=== PATIENT | female | born 1940 | race Caucasian/White ===

== ENCOUNTER → 2018-06-20 08:34 | Outpatient (CLI) | payer MEDICARE, SELFPAY ==
[2018-06-20 09:51] LABS: Alanine Aminotransferase 25 IU/L (9-52); Albumin 4.4 g/dL (3.5-5.0); Albumin Globulin Ratio 1.6 (1.0-2.8); Alkaline Phosphatase 44 U/L (38-126); Aspartate Aminotransferase 24 IU/L (14-36); Bilirubin Total 0.6 mg/dL (0.2-1.3); Blood Urea Nitrogen 14 mg/dL (7-17); Calcium 9.3 mg/dL (8.4-10.2); Carbon Dioxide 27 mmol/L (22-32); Chloride 105 mmol/L (98-107); Estimated Glomerular Filt Rate > 60.0 mL/min (>60); Globulin 2.7 g/dL (1.7-4.1); Glucose 99 mg/dL (80-110); HEMOLYSIS < 15 (0-50); Magnesium 2.4 mg/dL (1.6-2.3); Potassium 4.4 mmol/L (3.4-5.1); Sodium 144 mmol/L (137-145); Total Protein 7.1 g/dL (6.3-8.2)
[2018-06-23 11:49] LABS: Lipoprofile NMR SEE SEPERATE REPORT
== END ==
PROVIDERS: Family Provider Family Medicine; PCP Family Medicine; Visit Provider Specialist
DX: E78.5 Hyperlipidemia, unspecified (principal); I25.10 Atherosclerotic heart disease of native coronary artery without angina pectoris; I49.1 Atrial premature depolarization
CPT/HCPCS: 36415; 80053; 83704; 83735

== ENCOUNTER → 2018-09-15 14:46 | Outpatient (CLI) | payer MEDICARE, SELFPAY | PROVIDERS: PCP Family Medicine; Visit Provider Family Medicine | DX: M85.851 Other specified disorders of bone density and structure, right thigh (principal); Z78.0 Asymptomatic menopausal state; Z85.3 Personal history of malignant neoplasm of breast | CPT/HCPCS: 77080 ==

== ENCOUNTER → 2018-10-10 09:42 | Outpatient (CLI) | payer MEDICARE, SELFPAY ==
--- NOTE | 2018-10-10 | DI.MG.S_ITS ---
BILATERAL DIGITAL SCREENING MAMMOGRAM 3D/2D WITH CAD POST LUMPECTOMY: 10/10/2018 CLINICAL: Routine screening. Personal history of right breast cancer. Comparison is made to exams dated: 09/13/2017 mammogram, 08/31/2016 mammogram, and 05/29/2015 mammogram - [facility]. The tissue of both breasts is heterogeneously dense. This may lower the sensitivity of mammography. Current study was also evaluated with a Computer Aided Detection (CAD) system. There are benign post operative findings in the right breast. There also are benign vascular calcifications in both breasts. No significant masses, calcifications, or other findings are seen in either breast. There has been no significant interval change. IMPRESSION: There is no mammographic evidence of malignancy. A 1 year screening mammogram is recommended. This exam was interpreted at Station ID: [id number]. NOTE: For mammograms, a report in lay terms will be sent to the patient. Approximately 15% of breast malignancies will not be visualized mammographically. In the management of a palpable breast mass, a negative mammogram must not discourage biopsy of a clinically suspicious lesion. Electronically Signed By: Chaitanya gordon/brendon:10/10/2018 11:33:57 copy to: CONNOR MAJOR letter sent: Normal Exam ACR BI-RADS Category 2: Benign Finding(s) [id number]
== END ==
PROVIDERS: PCP Family Medicine; Visit Provider Family Medicine
DX: Z12.31 Encounter for screening mammogram for malignant neoplasm of breast (principal); Z85.3 Personal history of malignant neoplasm of breast
CPT/HCPCS: 77063; 77067

== ENCOUNTER → 2018-10-13 09:12 | Outpatient (CLI) | payer MEDICARE, SELFPAY ==
[2018-10-17 14:37] LABS: Lipoprofile NMR SEE SEPERATE REPORT
== END ==
PROVIDERS: Family Provider Family Medicine; PCP Family Medicine; Visit Provider Specialist
DX: E78.5 Hyperlipidemia, unspecified (principal)
CPT/HCPCS: 36415; 83704

== ENCOUNTER → 2018-12-04 12:23 | Outpatient (CLI) | payer MEDICARE, SELFPAY ==
[2018-12-04 14:43] LABS: Appearance Urine UA CLOUDY; Bilirubin Urine UA NEGATIVE (NEGATIVE); Color Urine UA YELLOW; Glucose Urine UA NEGATIVE (Negative); Ketones Urine UA NEGATIVE (NEGATIVE); Leukocyte Esterase Urine UA 1+ (NEGATIVE); Nitrite Urine UA NEGATIVE (Negative); Occult Blood Urine UA 3+ (Negative); Protein Urine UA 2+ (Negative); Urobilinogen Urine UA 0.2 E.U./dL (0.2); pH Urine UA 5.5 (4.5-8.0)
[2018-12-04 14:47] LABS: Bacteria Urine Few (2-10); RBC Urine 5-10/HPF (0-5/HPF); Squamous Epithelial Cell Urine 1-5 /HPF; WBC Urine 5-10/HPF (0-5/HPF)
[2018-12-04 14:48] LABS: Culture Indicated Urine Specimen Cultured; Mucus Urine 1+ (Negative)
== END ==
PROVIDERS: Family Provider Family Medicine; PCP Family Medicine; Visit Provider Nurse Practitioner
DX: N39.0 Urinary tract infection, site not specified (principal)
CPT/HCPCS: 81001; 87077; 87086; 87186

== ENCOUNTER → 2019-02-23 15:50 | Outpatient (CLI) | payer MEDICARE, SELFPAY ==
--- NOTE | 2019-02-23 15:52 | DI.RAD.S_ITS ---
PROCEDURE: XR CHEST 2V INDICATIONS: cough, fever TECHNIQUE: 2 views of the chest were acquired. COMPARISON: [facility], , CHEST 2 VIEW, 09/01/2015, 14:48. FINDINGS: Surgical changes and devices: None. Lungs and pleura: Lungs are clear. No pleural effusions or pneumothorax. Mediastinum: Mediastinal contours are normal. Heart size is normal. Bones and chest wall: No suspicious bony abnormalities. Soft tissues appear unremarkable. IMPRESSION: Normal for age, source of current cough and fever symptoms is not seen. Dictated by: Myron Araiza M.D. on 02/23/2019 at 16:18 Approved by: Myron Araiza M.D. on 02/23/2019 at 16:18
== END ==
PROVIDERS: Family Provider Family Medicine; PCP Family Medicine; Visit Provider Nurse Practitioner
DX: R05 Cough (principal); R50.9 Fever, unspecified
CPT/HCPCS: 71046

== ENCOUNTER → 2019-03-02 12:09 | Outpatient (CLI) | payer MEDICARE, SELFPAY ==
--- NOTE | 2019-03-02 12:13 | DI.RAD.S_ITS ---
PROCEDURE: XR CHEST 2V INDICATIONS: Worsening cough TECHNIQUE: 2 views of the chest were acquired. COMPARISON: [facility], CR, XR CHEST 2V, 02/23/2019, 15:59. FINDINGS: Surgical changes and devices: Surgical clips in the right axilla as before. Lungs and pleura: Lungs are clear. No pleural effusions or pneumothorax. Mediastinum: Mediastinal contours are normal. Heart size is normal. Bones and chest wall: No suspicious bony abnormalities. Soft tissues appear unremarkable. IMPRESSION: Stable radiographic evaluation of the chest without acute cardiopulmonary abnormalities. No focal consolidation. No radiographic abnormalities identified to explain patient's worsening cough. Dictated by: Stas Velazco M.D. on 03/02/2019 at 12:59 Approved by: Stas Velazco M.D. on 03/02/2019 at 13:00
== END ==
PROVIDERS: Family Provider Family Medicine; PCP Family Medicine; Visit Provider Registered Nurse
DX: R05 Cough (principal)
CPT/HCPCS: 71046

== ENCOUNTER → 2019-05-02 10:36 | Outpatient (CLI) | payer MEDICARE, SELFPAY ==
[2019-05-02 11:43] LABS: Add Manual Diff / Slide Review NO; Basophils Absolute Auto 0 /uL (0-100); Basophils Percent Auto 0.3 % (0-2); Eosinophils Absolute Auto 200 /uL (0-450); Eosinophils Percent Auto 2.2 % (2-4); Hemoglobin 13.8 g/dL (12.0-16.0); Lymphocytes Absolute Auto 2700 /uL (1100-4500); Mean Corpuscular HGB Conc 33.8 % (30-36); Mean Corpuscular Hemoglobin 31.6 PG (26-34); Mean Corpuscular Volume 93.5 fL (80-100); Monocytes Absolute Auto 900 /uL (0-900); Monocytes Percent Auto 9.6 % (3-14); Neutrophils Absolute Auto 5700 /uL (1500-7000); Neutrophils Percent Auto 59.9 % (50-75); Platelet Count 247 X10^3/uL (150-400); Red Blood Cell Count 4.38 X10^6/uL (4.0-5.2); Red Cell Distribution Width 13.7 % (11.6-14.8); White Blood Cell Count 9.5 X10^3/uL (4.5-11.0)
[2019-05-02 12:04] LABS: Carbon Dioxide 26 mmol/L (22-32); Chloride 102 mmol/L (98-107); HEMOLYSIS < 15 (0-50); Sodium 140 mmol/L (137-145)
== END ==
PROVIDERS: Family Provider Family Medicine; PCP Family Medicine; Visit Provider Orthopaedic Surgery
DX: M25.551 Pain in right hip (principal); Z01.818 Encounter for other preprocedural examination; Z01.812 Encounter for preprocedural laboratory examination
CPT/HCPCS: 36415; 80051; 85025

== ENCOUNTER → 2019-05-09 13:46 | Outpatient (CLI) | payer MEDICARE, SELFPAY | PROVIDERS: Family Provider Family Medicine; PCP Family Medicine; Visit Provider Orthopaedic Surgery | DX: Z01.818 Encounter for other preprocedural examination (principal) | CPT/HCPCS: 93005; 93010 ==

== ENCOUNTER 2019-05-14 08:42 | Inpatient (IN) | payer MEDICARE, SELFPAY ==
[2019-05-08 11:41] VITALS: BMI 20.9
[2019-05-14] VITALS (14 sets, daily range): BP systolic 94–157; BP diastolic 39–84; PULSE 64–109; RESP 15–18; TEMP 36.1–37; O2SAT 92–99; BMI 20.9
--- NOTE | 2019-05-14 | DI.RAD.S_ITS ---
PROCEDURE: XR PELVIS 1-2V INDICATIONS: ANTERIOR HIP ARTHROPLASTY FINDINGS: 2 limited intraoperative fluoroscopically stored images of the right hip were obtained for intraoperative hardware localization purposes. These images are not meant for diagnostic purposes. Intraoperative findings related to a right hip arthroplasty are present. IMPRESSION: Intraoperative images obtained during the patient's right hip arthroplasty. Dictated by: Diallo Luo M.D. on 05/14/2019 at 13:29 Approved by: Diallo Luo M.D. on 05/14/2019 at 13:30
--- NOTE | 2019-05-14 06:00 | DI.RAD.S_ITS ---
PROCEDURE: XR PELVIS 1-2V INDICATIONS: post op films TECHNIQUE: 1 view of the lower pelvis acquired. COMPARISON: [facility], CR, XR PELVIS WITH LATERAL HIP RIGHT, 04/17/2019, 15:50. [facility], CR, XR PELVIS 1-2V, 05/14/2019, 13:40. FINDINGS: Bones: Patient is status post right hip arthroplasty, with hardware components in expected positions. The hip joint appears congruent. The visualized bony structures appear intact. Soft tissues: Overlying postoperative changes are noted. Multiple scattered calcifications are redemonstrated in the pelvis likely representing phleboliths. IMPRESSION: 1. Expected postsurgical changes status post right hip arthroplasty. Dictated by: Chaitanya Ramsey M.D. on 05/14/2019 at 14:32 Approved by: Chaitanya Ramsey M.D. on 05/14/2019 at 14:34
[2019-05-14] MEDS: CELECOXIB 200 MG CAPSULE PO (09:17)
[2019-05-14] MEDS: PREGABALIN 75 MG CAPSULE PO (09:17)
[2019-05-14] MEDS: ACETAMINOPHEN 325 MG TABLET 975 MG PO ×2 (09:17→16:27)
[2019-05-14] MEDS: LACTATED RINGERS 1,000 ML 42 ML IV ×2 (09:45→13:10)
--- NOTE | 2019-05-14 10:27 | PM.PREOP ---
Pre-operative Note Interval Note History & Physical reviewed/Exam performed by Physician: Yes Changes to H&P: No
[2019-05-14] MEDS: CEFAZOLIN 1 GM VIAL IV (11:50)
--- NOTE | 2019-05-14 12:32 | SUR.OPER ---
pt supine on Lolita table legs staddling padded center post, bilateral feet in padded hana table boots and suspended on articulating hana table leg armature. Bilateral arms on padded armboards at less than 90 degrees from body.
[2019-05-14] MEDS: ROPIVACAINE 0.5% PF 5 MG/ML 20ML VIAL 60 ML INJ (12:38)
[2019-05-14] MEDS: TRANEXAMIC ACID 1,000 MG VIAL 1000 MG INJ ×2 (12:39→13:48)
[2019-05-14] MEDS: MORPHINE 4 MG/ML INJ INJ (12:39)
[2019-05-14] MEDS: KETOROLAC 30 MG/ML VIAL IV (12:40)
--- NOTE | 2019-05-14 14:00 | PC.NURSE ---
Day shift: Pt not on AC unit at this time.
--- NOTE | 2019-05-14 15:48 | PM.OP.1 ---
Operative Date/Time/Diagnoses Date of procedure: 05/14/19 Time of procedure: 15:48 Post-op diagnosis: same Procedure & Clinicians Procedure: Right total hip arthroplasty via direct anterior approach (CPT code 14105 with cardiology physician assistant) Same procedure as scheduled: Yes Indications: Patient is an 79-year-old female with severe right hip DJD. The patient has pain with activities and at rest, limited ambulation and activity tolerance, difficulties with ADLs, and failure of conservative treatment. We have discussed the nature of condition, treatment options, risks and benefits, and patient elects to proceed with total hip arthroplasty via direct anterior approach and gives informed consent. Surgeon: Yovani Cool Hands Hanger: Malgorzata Alcazar Anesthesia Type: General and Spinal Operative Notes Closure Type: primary Specimen(s): none sent Prosthetic devices, grafts, tissues, transplants, or devices: Acetabulum: Ling and Nephew R3 acetabular component size 46 mm Femoral component: Ling and Nephew Anthology stem size 5 with standard offset Femoral head: 28 mm + 0 cobalt chrome Estimated Blood Loss (mL): 200 Procedure in detail: Patient brought to the operating room and after satisfactory induction of anesthetic and administration of IV antibiotics patient placed supine on the Juncos table with both feet in the ski boots and all bony prominences well padded. First dose of tranexamic acid was administered intravenously the right hip and lower extremity were then prepped and draped in usual sterile fashion. Longitudinal incision created beginning just distal and lateral to the ASIS and carried sharply through the skin and subcutaneous tissues down to the fascia over the TFL. Fascia incised longitudinally and the muscle stripped posteriorly and retracted a Kober retractor placed in the superior femoral neck area. Gelpi retractors placed distally in the anterior circumflex vessels identified and cauterized. Pericapsular fat was then excised and a capsular incision then created with the lateral capsule excised. Femoral neck cut then made after determining the appropriate neck cut length with fluoroscopy. Femoral head removed and acetabular retractors placed. Acetabular labrum and osteophytes were excised and sequential reaming of the acetabulum to 45 mm, with an excellent circumferential ream and fit with the trial. A 46 mm Ling and Nephew R3 acetabular component was selected, inserted, and impacted position under fluoroscopic guidance with excellent position and fixation achieved. Permanent liner was then inserted. Additional anterior and lateral capsular releases were then performed and the leg was dropped to the floor in full extension with maximal external rotation and abduction under the other leg. The lateral femoral neck was then entered and sequential broaching to 5 was performed and a trial reduction yielded excellent leg length range of motion and stability characteristics confirmed on C-arm. The trial and broach were then removed and a size 5 Ling and Nephew anthology stem was selected inserted and impacted into position a 28 mm +0 cobalt chrome ball was then placed on the femoral component and the hip reduced final fluoroscopic images taken demonstrating satisfactory position and fixation of the implants and excellent leg lengths. The wound was copiously irrigated. Waiter/Waitress Economy Class tissues infiltrated with ropivacaine, Marcaine, and Toradol. The TFL fascia was closed with a running 1. Vicryl in the subcutaneous tissues were closed with 2 O Vicryl as well as a locking intracuticular stitch and skin adhesive. Sterile dressings were applied and the anesthetic terminated patient taken to postanesthesia recovery in satisfactory condition. Complications: none Condition: stable Disposition: PACU Plan for aftercare: Patient will be admitted to the acute care canales, and anticipate discharge on postop day 1 with follow-up in office in 10-14 days. Outpatient physical therapy will be arranged and patient will gradually increase activity as tolerated. Patient will continue use of postoperative Lovenox for 10 days postop.
[2019-05-14] MEDS: LACTATED RINGERS 1,000 ML 125 ML IV (16:28)
[2019-05-14] MEDS: CEFAZOLIN 2 GM/100 ML FROZ.PIGGY IV (21:20)
[2019-05-14] MEDS: PRAMIPEXOLE 0.25 MG TABLET 0.75 MG PO (21:22)
[2019-05-14] MEDS: SIMVASTATIN 40 MG TABLET PO (21:22)
[2019-05-14] MEDS: dilTIAZem CD 180 MG CAP PO (21:22)
[2019-05-15 03:45] VITALS: BP 144/75; PULSE 100; RESP 16; TEMP 37; O2SAT 96
[2019-05-15] MEDS: CEFAZOLIN 2 GM/100 ML FROZ.PIGGY IV (04:28)
--- NOTE | 2019-05-15 05:34 | PC.NURSE ---
Pt reports no pain, no numbness or tingling. Moving around very well to bedside commode. IVF running as ordered.
[2019-05-15 07:17] LABS: Hematocrit 33.2 % (36-46); Hemoglobin 11.3 g/dL (12.0-16.0)
[2019-05-15 07:34] VITALS: BP 129/75; PULSE 95; RESP 16; TEMP 37.2; O2SAT 92
[2019-05-15] MEDS: ENOXAPARIN 40 MG/0.4 ML SYRINGE SUBCUT (09:18)
[2019-05-15] MEDS: dilTIAZem CD 180 MG CAP PO (09:19)
[2019-05-15] MEDS: ASPIRIN EC 81 MG TABLET PO (09:19)
[2019-05-15] MEDS: ACETAMINOPHEN 325 MG TABLET 975 MG PO (09:19)
--- NOTE | 2019-05-15 10:23 | PM.DS.1 ---
History of Present Illness Date Patient Seen: 05/15/19 Time Patient Seen: 10:23 Chief complaint: [id number] Narrative: Hospital day 2, postop day 1 following right anterior total hip arthroplasty by Dr. Cool. Patient remained stable postoperatively. Patient did ambulate with PT this morning and also a use stairs. She is scheduled go to [facility] in [place]. Patient feels comfortable going home today. Her is comfortable taking care of her. She is a [facility] patient but does not have postoperative pain med at home. Discharge Providers Date of admission: 05/14/19 08:42 Discharge Date: 05/15/19 Primary care physician: Pascual Nichols MD Consults: 05/14/19 14:57 Consult to Discharge Planning Routine Comment: Consult to Physical Therapy Evaluate & Treat Comment: Physician Instructions: post op JERRY protocol Consult to Respiratory Therapy Evaluate & Treat Comment: Physician Instructions: Evaluate and treat Discharge provider: Ramesh Khan PA-C Summary Discharge Diagnosis: Status post right anterior total hip arthroplasty Hospital Course: Patient brought to hospital on 05/14/2019 for above noted surgery. She remained stable postoperatively. Progressed with physical therapy. Ready for discharge home on postop day 1. Status at Discharge Cognitive/behavioral status at discharge: oriented Functional status at discharge: uses cane/walker Overall status at discharge: patient is progressing back to baseline Time Spent with Patient Less than 30 minutes Exam Vital Signs (past 8 hours): - 05/15/19 03:45 05/15/19 07:34 Temperature 98.6 F 98.9 F Pulse Rate 100 H 95 H Respiratory Rate 16 16 Blood Pressure 144/75 H 129/75 Pulse Oximetry 96 92 Oxygen Delivery Method Room Air Oxygen Flow Rate 0 Narrative Exam Narrative: Alert, oriented in no acute distress resting in bed. Legs. Aquacel dressing to right anterior hip is dry without drainage or inflammation. No calf pain or swelling. Pulses symmetrical. Objective Labs Result Diagrams: 05/15/19 06:45 Labs: Laboratory Results - last 24 hr 05/15/19 06:45 Hgb 11.3 L Hct 33.2 L Discharge Plan Discharge Plan Patient Disposition: Home Discharge comment: Discharge home today after cleared by PT. Given prescription for tramadol 50 mg 15. And Lovenox 40 mg 9. Anterior hip precautions x6 weeks postop. She will use Lovenox daily times 10 days postop then start aspirin 81 mg b.i.d. times 30 days. Discharge Med Rec/Prescriptions Prescriptions: New acetaminophen 325 mg Tablet 975 mg PO TID Qty: 30 RF: 0 aspirin 81 mg Tablet,Delayed Release (Dr/Ec) 81 mg PO BID Qty: 30 RF: 0 enoxaparin [Lovenox] 40 mg/0.4 mL Syringe 40 mg subcut DAILY Qty: 9 RF: 0 tramadol 50 mg tablet 50 mg PO Q6H PRN (Reason: pain) Qty: 15 RF: 0 Continued multivitamin Capsule 1 cap PO DAILY Qty: 0 RF: 0 Calcium 600 + D(3) 600 mg calcium- 200 unit Capsule 1 tab PO DAILY Qty: 0 RF: 0 Prilosec OTC 20 MG tablet,delayed release (DR/EC) 20 mg PO QDAY PRN (Reason: Acid Reflux) Qty: 0 RF: 0 meloxicam [Mobic] 7.5 mg tablet 7.5 mg PO AMCC Qty: 90 RF: 3 pramipexole 0.5 mg tablet 0.75 mg PO BEDTIME Qty: 90 RF: 3 diltiazem HCl 180 mg Capsule,Extended Release 24 Hr 180 mg PO BID RF: 0 simvastatin 40 mg Tablet 40 mg PO BEDTIME RF: 0 megestrol 20 mg PO PRN PRN (Reason: Hot Flashes) RF: 0 Discontinued naproxen 500 mg Tablet 500 mg PO BID RF: 0 Follow up/Referrals: Pascual Nichols MD [Primary Care Provider] - Provider Discharge Instructions Diet: Diet as Tolerated Activity: Ambulate as tolerated. Anterior total hip precautions x6 weeks postop. Use walker as needed. Cold/Heat Therapy: Cold pack to right hip area as needed. Skin/Wound/Dressing Care Report to your healthcare provider any signs of infection, such as:: chills, fever, night sweats, increased pain, unusual drainage and unusual redness Dressing: Keep Aquacel dressing in place until postop visit. Visit Report/Discharge Packet Instructions: DI for Hip Replacement Discharge Data Primary Care Provider: Pascual Nichols Attending Provider: Yovani Cool Admit Date/Time: 05/14/19 08:42
--- NOTE | 2019-05-15 10:26 | PT.IIE ---
Current Diagnoses Unilateral primary osteoarthritis, right hip (05/14/19) Surgery Performed Operation Date: 05/14/19 10:45 Actual Procedures p Total Hip Arthroplasty/Anterior Approach(Right) - Yovani Cool MD Surgical History (Last Updated 05/08/19 @ 12:06 by Charisse Swift RN) Hx of bilateral cataract extraction (Acute ~2017) Hx of foot surgery (Acute ~06/2018) Hx of heart artery stent (Acute ~1998) Anesthesia (Resolved) History of lumpectomy (~2000) Medical History (Last Updated 05/08/19 @ 12:06 by Charisse Swift RN) Acid reflux (Acute) Breast cancer, right (Acute ~2000) Bronchitis (Acute ~02/2019) Easy bruisability (Acute) HTN (hypertension) (Acute) Lower back pain (Acute) Neuropathy (Acute) SVT (supraventricular tachycardia) (Acute) Back pain (Chronic ~2014) Breast cancer (Chronic ~2000) Cardiac arrhythmia (Chronic) Coronary artery disease (Chronic ~1998) Foot pain (Chronic ~2012) Hyperlipidemia (Chronic) Osteoarthritis (Chronic ~1995) Osteoporosis (Chronic ~1994) Restless leg syndrome (Chronic ~1979) Seasonal allergies (Chronic ~2010) Shoulder pain (Chronic ~2014) Chicken pox (Resolved ~1973) Physical Therapy Inpatient Evaluation/Re-Eval M1 PT/OT-IP Prior Functional Status Start: 05/14/19 15:53 Freq: NEEDED Status: Active Protocol: Document 05/15/19 09:51 AW (Rec: 05/15/19 10:24 AW [id number]) Medical Review Prior Functional Status Medical History Reviewed Yes Diet/Fluid Consistency Regular Communication Pt found up in bed, visiting with , Saul. She was agreeable to participate in therapy evaluation. Mobility and Gait Pt was modified independent with all functional mobility. She used a FWW more frequently as her right hip pain increased over the past few months. Activities of Daily Living and IADL's Pt required no assistance with ADL/IADL's Prior Functional Level (Other details) Pt is extremely active with an established exercise routine. Social History Household Members spouse Living Arrangements House Number of Floors (Floors) 3 or More Floors Number of Stairs To Enter/Railing? No DARIELA from garage at ground level. 7+7 steps with left hand rail (ascending) to access main level with kitchen and living areas. Another 7+7 steps with left HR (ascending ) to access 3rd level bedroom. Pt is not willing to consider main level living for the near future and does plan to sleep on third level. 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 M2 PT-IP Current Condition Start: 05/14/19 15:53 Freq: NEEDED Status: Active Protocol: Document 05/15/19 09:51 AW (Rec: 05/15/19 10:24 AW [id number]) Physical Therapy Current Condition Current Condition Evaluation Date 05/15/19 Treatment Diagnosis R JERRY with anterior approach Onset Date 05/14/19 Precautions Anterior Hip Precautions No Hip Extension No Hip External Rotation Weight Bearing Status Weight Bearing Status Weight Bear as Tolerated M3 PT-IP Subjective Start: 05/14/19 15:53 Freq: NEEDED Status: Active Protocol: Document 05/15/19 09:51 AW (Rec: 05/15/19 10:24 AW [id number]) Subjective Physical Therapy Visit Type Type Initial Evaluation Visit Start Time 09:12 Visit Stop Time 09:45 Total Visit Minutes 33 Number of MECHANICAL ENGINEERING MANAGER Visits 0 Physical Therapy Visit Comments Patient Comments Pt eager to get moving and go home Patient Goals Pt plans to return to her 3- level home with 24/7 spouse assist Therapy Pain Assessment Pain When Pain Assessed During Mobility Pain Present Pain Present Denied Pain M4 PT-IP Mobility and Gait Start: 05/14/19 15:53 Freq: NEEDED Status: Active Protocol: Document 05/15/19 09:51 AW (Rec: 05/15/19 10:24 AW [id number]) PT-Bed Mobility Assessment Supine to Sit Supine to Sit Standby Assistance Sit to Supine Sit to Supine Standby Assistance Scooting Scooting to Edge of Bed Independent PT-Transfer Assessment Sit to and From Stand Sit to and from Stand Standby Assistance Equipment Transfer Assistive Device Gait Belt Front Wheeled Walker Orthotic/Prosthetic Devices or Brace: No Transfers Transfer Destination Bed Chair Transfer Ability Level of Assist Standby Assistance Comments Mobility Comments Pt required standby assist at most for all transfers with good attention to safety. Gait Assessment Gait Gait Assistance Required: Standby Assistance Distance (Feet) 120 Able to Maintain Weight Bearing Status Yes During Gait Assistive Devices Assistive Device Gait Belt Front Wheeled Walker Orthotic/Prosthetic Devices or Brace: No Gait Deviations General Gait Pattern Decreased Stride Length Comments Gait Comments Stride length decreased intentionally to avoid excessive hip extension. Pt able to safely use FWW to unweight RLE as needed. Pt reported no increase in pain with ambulation. Stair Climbing Assessment Evaluation Level of Assist On Stairs Standby Assistance Devices Stair Climbing Assistive Devices Left Railing Right Railing Technique/Endurance Stair Climbing Direction Ascend and Descend Stair Climbing Technique Step to Step Number of Steps Climbed 3 Query Text: Stair Climbing Set # Repetitions (reps) 1 Comments Stair Climbing Comments Pt advised to continue using step-to pattern until cleared by outpatient PT. PT-Balance Assessment Sitting Balance and Reactions Static Sitting Balance Ability Normal Dynamic Sitting Balance Ability Normal Standing Balance and Reactions Static Standing Balance Ability Good Dynamic Standing Balance Ability Good M5 PT-IP Objective Assessments Start: 05/14/19 15:53 Freq: NEEDED Status: Active Protocol: Document 05/15/19 09:51 AW (Rec: 05/15/19 10:24 AW [id number]) Orientation Orientation/Cognition Level of Alertness Alert Orientation Name Age Birthday Month Date Year Day of Week Place Situation Language Function Ability No Deficits Noted Safety Awareness Understands Safety Issues Memory Description No Deficits Noted Gross Range of Motion Upper Extremity ROM Assessment Within Functional Limits Lower Extremity ROM Assessment Right Impaired Strength Upper Extremity Strength Assessment Within Functional Limits Lower Extremity Strength Assessment Right Impaired Coordination Assessment Gross Coordination Gross Coordination WNL Sensation Assessment Sensation Gross Sensation WNL M6 PT-IP Treatment Start: 05/14/19 15:53 Freq: NEEDED Status: Active Protocol: Document 05/15/19 09:51 AW (Rec: 05/15/19 10:24 AW [id number]) Physical Therapy Treatment Exercises Exercises Ankle Pumps Gluteal Sets Quad Sets Heel Slides Education Education Provided Precautions Weight Bearing Status Post-Op Packet Safety M7 PT-IP Assessment and Plan Start: 05/14/19 15:53 Freq: NEEDED Status: Active Protocol: Document 05/15/19 09:51 AW (Rec: 05/15/19 10:24 AW [id number]) PT Summary Assessment and Plan Potential Rehabilitation Potential Excellent Status of Condition at Evaluation Stable Summary Impairments ROM Strength Gait Activity Tolerance Assessment Summary Pt is a pleasant 79 yo woman seen for PT evaluation on POD1 following R JERRY with anterior approach. BP was stable from supine (131/70) to sitting ( 128/82) with no pt report of lightheadedness or nausea. PLOF: Pt was independent with all functional mobility, but had been using a FWW more frequently recently due to increased R hip pain. CLOF: Pt reported no pain at rest and no increase in pain with mobility, including stairs. Therapist reviewed PT plan of care and anterior hip precautions which pt was able to teach back. Introduced supine exercises (ankle pumps, quad sets, gluteal sets, heel slides) which were well tolerated. Pt required SBA assist only for transfers, ambulation, and stairs. Pt appears to be near baseline function. If patient remains in hospital, next session should focus on stair training with left HR only or left HR and [id number]. PT recommendation is for discharge to home with spouse assist and for follow-up with outpatient PT as planned. Goals Bed Mobility Goal Independent Transfer Goal Standby Assistance Front Wheeled Walker Gait Goal Standby Assistance Front Wheel Walker Gait Distance 200 Other Goals Pt will ascend/descend 3 steps twice using L HR or L HR plus hand-hold assist for safe access to main level of home. Days to Meet Goals 1 Frequency of Treatment Frequency Of Treatment Twice a Day Treatment Plan Physical Therapy Treatment Plan Bed Mobility Training Transfer Training Gait Training Therapeutic Exercise Balance Retraining Post Op Education Discharge Planning Hot or Cold Pack Neuromuscular Re-ed Coordination Retraining Manual Therapy Other Recommendations and Next Treatment Focus on stairs. Focus Recommendations To Nursing Amount of Assist Needed Standby Assistance Discharge Recommendations PT Discharge Recommendations Home with Assistance Outpatient PT
--- NOTE | 2019-05-15 12:15 | PC.NURSE ---
Day shift: Pt left unit via WC with Spouse and DOCUMENT MANAGEMENT TECHNICIAN to private car. Paperwork signed and they have MD scrips. All questions answered. Pt has all personal belongings.
--- NOTE | 2019-05-15 15:29 | CM.DANOTE ---
Discharge Planning/Care Management DCP: assessment: case received, EMR reviewed. Discuss in Team Rounds. Pt is an 79 year old female who admitted yesterday for a planned JERRY. Surgeon: Dr. Cool Admission status: INPT: confirmed by UR EMERSON Tavares. [facility] protocol planned per orthopedic BHAVESH Khan. PT was ordered. BHAVESH Khan noted pt would d/c today if cleared for home setting by PT. Spoke later with PT Nadeen. She noted that pt had done will and was eager for d/c today. Went to check in with pt early this afternoon. EMERSON Blount noted she had already left for home: 1215 with her spouse. OUTPT Therapy was planned. CM Discharge Assessment Start: 05/15/19 15:29 Freq: Status: Discharge Protocol: Document 05/15/19 15:29 ITV (Rec: 05/15/19 15:29 ITV [id number]) Discharge Planning Assessment Advance Directives? Yes Advance Directives on File No History Provided By Patient Medical Record Prior Living Arrangements House Household Members spouse Review Status In Process Pre-Anesthesia Assessment Start: 05/08/19 11:40 Freq: Status: Discharge Protocol: Document 05/08/19 11:41 CAB (Rec: 05/08/19 12:35 CAB [id number]) Pre-Anesthesia Assessment PAC Comment Pt wants to discuss w/ Anesthesia, meds that may potentiate her RLS Patient Information Reviewed Via Phone Assessment Assessment Completed With Patient Primary Care Provider Pascual Nichols Seen Specialist in Last 12 Months Yes Specialist Seen Corporate Quality Manager Opthamologist/Rubber Engraver Orthopedist Primary Language Latvian Preferred Language Portuguese Drivematic Machine Operator Required No Height 167.64 cm Weight 58.967 kg Body Mass Index (BMI) 20.9 Hearing Ability Normal Visual Assist Magnifying Glass Dentition Type Teeth, Natural Present Barriers to Learning None Other Aids No Hx Anesthesia Reactions Yes: Nausea, vomiting s/p lumpectomy Hx Family Anesthesia Reaction No Hx Malignant Hyperthermia No Hx Blood Transfusions No Hx Blood Transfusion Reaction No Comment Pt wants to discuss w/ Anesthesia, meds that may potentiate her RLS Anesthesia Review Requested No alcohol intake current alcohol intake frequency a few times a week Smoking Status Never smoker Substance Use Type does not use Pain Present Pain Reported Musculoskeletal Symptoms Abnormal Gait Back Pain Difficulty Walking Joint Pain Numbness History of Falling (Recent or History of No ) Patient is completely paralyzed or No completely immobile Prosthesis or Orthotic Device Cane Mental Status Oriented to own ability Is patient on oxygen? No Does patient have ABRAMS/SOB No Hx Sleep Apnea No Currently Taking a Beta [place] No Can You Climb a Flight of Stairs Without Yes SOB Hx Chest Pain No Hx SOB No Hx Syncope or Dizziness No Anti-Coagulant Therapy No Has a Corporate Quality Manager Yes: Dr. Barros-last visit scanned to record Cardiac Testing No Hx Pacemaker/ICD No Pacemaker Rep Required? No Cardiac Clearance Received Not Applicable Diet Type At Home Regular dysphagia No Bladder Pattern Nocturia Urinary Catheter Present No Hx Urinary Self Catheterization No Diabetes No Patient No Lactating No Hx Drug Resistant Organism No Presence of External or Internal Medical No Devices Have you traveled outside the [facility] in the last 30 days? Comment [place] travel, returned Marital Status Lives With spouse Prior Living Arrangements House Number of Floors (Floors) 3 or More Floors Support System Spouse Does the Patient Have Assistance After Yes Surgery Patient Discharge Plan Description Return Home Comment Pt advised overnight length of stay per surgeon Feels Safe in Current Environment Yes Been Physically Hurt or Threatened By a No Person in Current Environment Do you have thoughts of harming yourself None or others? Are you currently considering suicide? No Do you have a plan to hurt yourself or No Plan others? Do You Have Any Spiritual Beliefs That No May Affect Your HC Choices? Do You Have Any Cultural Practices That No May Affect Your HC Choices? Comment Christianity Who Can We Speak to About Patient's Care Family, friends Identifying Code for Release of Patient Declines to issue Information Health Care Proxy/Next of Kin Del () Health Care Proxy Emergency Contact Name Del () Emergency Contact Advance Directives? Yes Advance Directives on File No Requested Patient Bring Advanced Yes Directives DOS Power of Contact Acid Plant Operator Helper No PAC Instructions Do not shave/clip surgical site Durable medical equipment Medications to take/avoid Nasal antibiotic No ETOH/petroleum product on skin DOS NPO Pre-surgical wash Sensory aids Sturdy shoes/comfortable clothes Do not bring valuables and remove jewelry
== END 2019-05-15 12:17 | disposition home or self-care (01) | DRG 470 ==
PROVIDERS: Admitting Provider Orthopaedic Surgery; PCP Family Medicine; Visit Provider Orthopaedic Surgery
PROC: 0SR902Z Replacement of Right Hip Joint with Metal on Polyethylene Synthetic Substitute, Open Approach (ICD-10-PCS; CPT 27130; principal; 2019-05-14 10:45)
DX: M16.11 Unilateral primary osteoarthritis, right hip (principal); E78.5 Hyperlipidemia, unspecified; I25.10 Atherosclerotic heart disease of native coronary artery without angina pectoris; G62.9 Polyneuropathy, unspecified; I10 Essential (primary) hypertension
CPT/HCPCS: 72170; 76000; 85014; 85018; 94762; 97116; 97161; C1776; J0690; J1100; J1650; J1885; J2270; J2274; J2405; J2704; J3010

== ENCOUNTER → 2019-08-24 16:09 | Outpatient (CLI) | payer MEDICARE, SELFPAY ==
[2019-05-14 17:02] VITALS: BMI 20.9
--- NOTE | 2019-08-24 | DI.MRI.S_ITS ---
PROCEDURE: MR LUMBAR SPINE WO CON INDICATIONS: Radiculopathy, lumbar region TECHNIQUE: Noncontrast sagittal T1 spin echo and T2 fast echo, sagittal STIR, axial T1 and T2 fast spin echo through the lumbar spine. In cases with scoliosis, additional coronal T2 fast spin echo may be performed. COMPARISON: [facility], MR, L-SPINE WITHOUT CONTRAST, 10/23/2012, 17:44. [facility], CR, XR PELVIS 1-2V, 05/14/2019, 14:12. FINDINGS: Image quality: Diagnostic, with note made of motion artifact. Alignment and Curvature: Grade 1 anterolisthesis is seen at L4-L5. No definite associated pars defects are seen. Bone Marrow: Marrow is of normal overall signal. No acute vertebral body compression fractures. Spinal Cord: Conus medullaris terminates at the T12-L1 level. Visualized cord demonstrates normal signal and size. Paraspinous Soft Tissues: No paravertebral masses. T12-L1: Normal appearance. L1-L2: The disc height is well-preserved. Loss of disc signal is seen at this level. L2-L3: Moderate to severe loss of disc height and disc signal are seen. Moderate to prominent disc bulge is seen. There is a central disc extrusion present. There is at least moderate facet hypertrophy seen. There is associated moderate hypertrophy of the ligamentum flavum. There is at least moderate bilateral neural foraminal narrowing seen. There is a mild degree compression seen upon the exiting nerve roots, right worse than left. Moderate to severe central canal narrowing is seen. The degenerative changes at this level have clearly progressed compared to 2013. L3-L4: Mild to moderate loss of disc height and disc signal can be seen. Moderate to prominent disc bulge is seen. There is a central/right disc extrusion seen. At least moderate facet hypertrophy is seen at this level. There is at least moderate bilateral neural foraminal narrowing seen. Moderate to severe central canal narrowing is seen, as on series 5 images 22 and 23. These degenerative changes are clearly worse than in 2013. L4-L5: Moderate to severe loss of disc height and disc signal are seen. Moderate to prominent disc bulge is seen. There is a prominent central/right disc extrusion seen, as on series 5 image 26 and on series 2 image 9. There is severe central canal narrowing seen, as on series 5 image 26 and on series 5 image 27. Moderate to prominent facet hypertrophy is seen at this level. Moderate to severe bilateral neural foraminal narrowing is seen, right worse than left. There is a degree of compression seen upon the exiting nerve roots. These degenerative changes have clearly progressed compared to 2013. L5-S1: The disc height is well-preserved. Loss of disc signal is seen at this level. At least moderate disc bulge is seen. Moderate to prominent facet hypertrophy is seen. There is moderate to severe bilateral neural foraminal narrowing seen, right worse than left. Moderate central canal narrowing is seen. These degenerative changes are worse than in 2013. IMPRESSION: Multiple levels of lumbar spine degenerative change are seen, including a prominent disc extrusion at L4-L5. These degenerative changes have clearly progressed compared to 2013. Dictated by: Kendell Magdaleno M.D. on 08/24/2019 at 17:00 Approved by: Kendell Magdaleno M.D. on 08/24/2019 at 17:06
== END ==
PROVIDERS: Family Provider Family Medicine; PCP Family Medicine; Visit Provider Orthopaedic Surgery
DX: M51.16 Intervertebral disc disorders with radiculopathy, lumbar region (principal); M47.26 Other spondylosis with radiculopathy, lumbar region
CPT/HCPCS: 72148

== ENCOUNTER → 2019-10-01 08:31 | Outpatient (CLI) | payer MEDICARE, SELFPAY ==
[2019-05-14 17:02] VITALS: BMI 20.9
[2019-10-01 10:13] LABS: Alanine Aminotransferase 30 IU/L (<35); Albumin 4.8 g/dL (3.5-5.0); Albumin Globulin Ratio 1.7 (1.0-2.8); Alkaline Phosphatase 68 U/L (38-126); Aspartate Aminotransferase 39 IU/L (14-36); BUN Creatinine Ratio 21.4 (6-22); Bilirubin Total 0.4 mg/dL (0.2-1.3); Blood Urea Nitrogen 15 mg/dL (7-17); Calcium 9.6 mg/dL (8.4-10.2); Carbon Dioxide 30 mmol/L (22-32); Chloride 102 mmol/L (98-107); Cholesterol 159 mg/dL (140-199); Estimated Glomerular Filt Rate > 60.0 mL/min (>60); Globulin 2.8 g/dL (1.7-4.1); Glucose 127 mg/dL (80-110); HDL Cholesterol 62 mg/dL (40-60); HEMOLYSIS < 15 (0-50); LDL Cholesterol Calculated 83 mg/dL (<100); Magnesium 2.3 mg/dL (1.6-2.3); Potassium 4.3 mmol/L (3.4-5.1); Sodium 139 mmol/L (137-145); Total Protein 7.6 g/dL (6.3-8.2); Triglycerides 71 mg/dL (35-150)
== END ==
PROVIDERS: PCP Family Medicine; Visit Provider Specialist
DX: E78.5 Hyperlipidemia, unspecified (principal); I10 Essential (primary) hypertension
CPT/HCPCS: 36415; 80053; 80061; 83735

== ENCOUNTER → 2019-10-26 09:49 | Outpatient (CLI) | payer MEDICARE, SELFPAY ==
[2019-05-14 17:02] VITALS: BMI 20.9
--- NOTE | 2019-10-26 | DI.MG.S_ITS ---
BILATERAL DIGITAL SCREENING MAMMOGRAM 3D/2D WITH CAD POST LUMPECTOMY: 10/26/2019 CLINICAL: Routine screening. Personal history of right breast cancer. Comparison is made to exams dated: 10/10/2018 mammogram, 09/13/2017 mammogram, 08/31/2016 mammogram, and 05/29/2015 mammogram - [facility]. The tissue of both breasts is heterogeneously dense. This may lower the sensitivity of mammography. Current study was also evaluated with a Computer Aided Detection (CAD) system. There are benign vascular calcifications in both breasts. There also are benign post operative findings in the right breast. No significant masses, calcifications, or other findings are seen in either breast. There has been no significant interval change. IMPRESSION: There is no mammographic evidence of malignancy. A 1 year screening mammogram is recommended. This exam was interpreted at Station ID: [id number]. NOTE: For mammograms, a report in lay terms will be sent to the patient. Approximately 15% of breast malignancies will not be visualized mammographically. In the management of a palpable breast mass, a negative mammogram must not discourage biopsy of a clinically suspicious lesion. Electronically Signed By: Chaitanya gordon/brendon:10/26/2019 11:36:58 copy to: CONNOR MAJOR letter sent: Normal Exam ACR BI-RADS Category 2: Benign Finding(s) [id number]
== END ==
PROVIDERS: PCP Family Medicine
DX: Z12.31 Encounter for screening mammogram for malignant neoplasm of breast (principal); Z85.3 Personal history of malignant neoplasm of breast
CPT/HCPCS: 77063; 77067

== ENCOUNTER → 2020-04-25 10:38 | Outpatient (CLI) | payer MEDICARE, SELFPAY ==
[2019-05-14 17:02] VITALS: BMI 20.9
--- NOTE | 2020-04-25 | DI.RAD.S_ITS ---
PROCEDURE: XR LUMBAR SPINE MIN 4V INDICATIONS: Spinal stenosis, lumbar region with neurogenic claudication TECHNIQUE: 5 views of the lumbar spine acquired. COMPARISON: None. FINDINGS: Bones: 5 nonrib-bearing vertebrae are present. There is mildly abnormal bony alignment with a stable degree of grade 1 anterolisthesis of L4 on L5. This is associated with presence of both degenerative disc disease and facet osteoarthritis over the lower 2/3 of the LS spine. Degenerative changes are most pronounced at L4-L5 but spinal and foraminal stenosis appears likely present from L3 inferiorly.. No vertebral body compression fractures. No suspicious bony lesions. Soft tissues: Overlying bowel gas pattern is normal. No suspicious soft tissue calcifications. Flexion/extension: There is normal range of motion, with preserved normal alignment. IMPRESSION: Anterolisthesis of L4 on L5 is associated with relatively prominent degenerative disc height reduction and moderately severe facet osteoarthritis at this level. The degree of subluxation does not increase or decrease during flexion and extension positioning. No acute disease is found such as compression fracture. Dictated by: Myron Araiza M.D. on 04/25/2020 at 12:34 Approved by: Myron Araiza M.D. on 04/25/2020 at 12:37
== END ==
PROVIDERS: PCP Family Medicine; Referring Provider Neurological Surgery; Visit Provider Neurological Surgery
DX: M48.062 Spinal stenosis, lumbar region with neurogenic claudication (principal); M43.16 Spondylolisthesis, lumbar region; M47.816 Spondylosis without myelopathy or radiculopathy, lumbar region
CPT/HCPCS: 72110

== ENCOUNTER → 2020-05-02 13:54 | Outpatient (CLI) | payer MEDICARE, SELFPAY ==
[2019-05-14 17:02] VITALS: BMI 20.9
--- NOTE | 2020-05-02 | DI.RAD.S_ITS ---
PROCEDURE: XR HIP W PEL IF DONE LT MIN 4V INDICATIONS: Spinal stenoisi,lumbar region with neurogenic TECHNIQUE: AP pelvis with lateral view(s) of the left and right hip(s). COMPARISON: [facility], CR, XR PELVIS WITH LATERAL HIP RIGHT, 07/17/2019, 10:19. FINDINGS: Bones: No fractures or dislocations. Stable appearance of right hip arthroplasty with prosthetic components in expected positions. No periprosthetic fractures. There is mild narrowing of the left hip joint with periarticular osteophyte formation. Pelvic ring appears intact. No suspicious bony lesions. Soft tissues: The visualized bowel gas pattern is normal. No suspicious soft tissue calcifications. IMPRESSION: 1. Appears stable appearance of right hip arthroplasty. 2. Mild left hip joint degeneration. Dictated by: Luis Vallejo [facility] Interpreted: Zion Flores MD on 05/02/2020 at 15:47 Approved by: Zion Flores M.D. on 05/02/2020 at 17:12
== END ==
PROVIDERS: PCP Family Medicine; Referring Provider Physician Assistant Surgical; Visit Provider Physician Assistant Surgical
DX: M48.062 Spinal stenosis, lumbar region with neurogenic claudication (principal); M16.12 Unilateral primary osteoarthritis, left hip; Z96.641 Presence of right artificial hip joint
CPT/HCPCS: 73522

== ENCOUNTER → 2020-05-03 15:16 | Outpatient (CLI) | payer MEDICARE, SELFPAY ==
[2019-05-14 17:02] VITALS: BMI 20.9
--- NOTE | 2020-05-03 | DI.MRI.S_ITS ---
PROCEDURE: MR LUMBAR SPINE WO CON INDICATIONS: SPINAL STENOSIS TECHNIQUE: Noncontrast sagittal T1 spin echo and T2 fast echo, sagittal STIR, axial T1 and T2 fast spin echo through the lumbar spine. In cases with scoliosis, additional coronal T2 fast spin echo may be performed. COMPARISON: [facility], MR, MR LUMBAR SPINE WO CON, 08/24/2019, 16:32. FINDINGS: Image quality: Excellent. Alignment and Curvature: There is grade 1 anterolisthesis of L4-L5, measuring 6 mm. There is unchanged trace retrolisthesis L3 on L4. Bone Marrow: Marrow is of normal overall signal. There are ruzo-sd-gttnphna reactive endplate changes present at L2-3 and L4-5 with Schmorl's nodes noted along the inferior endplate L2 and superior endplate of L5. No acute vertebral body compression fractures. Spinal Cord: Conus medullaris terminates at the L1 level. Visualized cord demonstrates normal signal and size. Paraspinous Soft Tissues: No paravertebral masses. Discs: Moderate to severe desiccation is present throughout the lumbar spine. L1-L2: Mild disc bulge without spinal stenosis or foraminal narrowing. Facet and ligamentum flavum hypertrophy are present. Minimal interval progression. L2-L3: Mild disc bulge with prominent protrusion. There is severe spinal stenosis. Severe bilateral, left greater than right foraminal narrowing is present with nerve root flattening on the left. Facet and ligamentum flavum hypertrophy are present. No significant interval change. L3-L4: Mild disc bulge with right posterior paracentral protrusion causing compromise of the right lateral recess, slightly more prominent when compared to prior exam. Severe spinal stenosis with canal flattening, also more prominent. Moderate to severe right and severe left foraminal narrowing slightly more prominent on the left compared to prior exam, with facet and ligamentum flavum hypertrophy L4-L5: Mild disc bulge with superimposed protrusions and extrusions appearing slightly more prominent when compared to prior exam. There is severe spinal stenosis with canal flattening. Moderate to severe left and severe right foraminal narrowing with nerve root flattening on the right. Facet and ligamentum flavum hypertrophy are present. L5-S1: Mild disc bulge without spinal stenosis. Moderate to severe bilateral foraminal narrowing with facet and ligamentum flavum hypertrophy. Stable interval exam. IMPRESSION: 1. Multilevel degenerative changes with minimal progression as noted above. 2. Multilevel severe spinal stenosis secondary to disc bulges as well as facet/ligamentum flavum arthropathy most notable at L2-3, L3-4 and L4-5. Dictated by: Linda Paulino M.D. on 05/05/2020 at 13:38 Approved by: Linda Paulino M.D. on 05/05/2020 at 14:00
== END ==
PROVIDERS: PCP Family Medicine; Referring Provider Neurological Surgery; Visit Provider Neurological Surgery
DX: M48.062 Spinal stenosis, lumbar region with neurogenic claudication (principal); M47.816 Spondylosis without myelopathy or radiculopathy, lumbar region
CPT/HCPCS: 72148

== ENCOUNTER → 2020-05-13 11:08 | Outpatient (CLI) | payer MEDICARE, SELFPAY ==
[2019-05-14 17:02] VITALS: BMI 20.9
[2020-05-13 11:30] LABS: RBC Urine None Seen (0-5/HPF)
[2020-05-13 13:28] LABS: Appearance Urine UA CLEAR; Bilirubin Urine UA NEGATIVE (NEGATIVE); Color Urine UA YELLOW; Glucose Urine UA NEGATIVE (Negative); Ketones Urine UA TRACE (NEGATIVE); Leukocyte Esterase Urine UA TRACE (NEGATIVE); Nitrite Urine UA NEGATIVE (Negative); Occult Blood Urine UA NEGATIVE (Negative); Protein Urine UA NEGATIVE (Negative); Urobilinogen Urine UA 0.2 E.U./dL (0.2)
[2020-05-13 13:41] LABS: Bacteria Urine Many (>30); Mucus Urine 3+ (Negative); Squamous Epithelial Cell Urine 5-10 /HPF (0-5/HPF); WBC Urine 1-5/HPF (0-5/HPF)
[2020-05-13 13:42] LABS: Culture Indicated Urine Cult Not Indicated
== END ==
PROVIDERS: PCP Family Medicine; Referring Provider Neurological Surgery; Visit Provider Neurological Surgery
DX: Z01.812 Encounter for preprocedural laboratory examination (principal); R82.79 Other abnormal findings on microbiological examination of urine; N39.0 Urinary tract infection, site not specified
CPT/HCPCS: 81001

== ENCOUNTER → 2020-06-04 13:51 | Outpatient (CLI) | payer MEDICARE, SELFPAY ==
[2019-05-14 17:02] VITALS: BMI 20.9
--- NOTE | 2020-06-04 | DI.RAD.S_ITS ---
PROCEDURE: XR LUMBAR SPINE 2-3V INDICATIONS: M48.062 TECHNIQUE: Three views of the lumbar spine were acquired. COMPARISON: [facility], CR, XR LUMBAR SPINE MIN 4V, 04/25/2020, 10:36. FINDINGS: Bones: Five avi-jsc-jxndury vertebrae are present. Interval placement of posterior element hardware at the L4-5 facet joint region. There is stable anterolisthesis L4 on five. Moderate disc height loss, endplate sclerosis and spurring at the L2-3 level. Severe disc height loss at L4-5 and moderate disc height loss L5-S1. No significant change. No vertebral body compression fractures. No suspicious bony lesions. Soft tissues: Overlying bowel gas pattern is normal. No suspicious soft tissue calcifications. Incidental note of right hip arthroplasty components. IMPRESSION: 1. Stabilization of L4 on five anterolisthesis with a posterior element fixation device. 2. No significant change in multilevel disc and endplate degeneration. Dictated by: Nelly Schumacher M.D. on 06/04/2020 at 18:35 Approved by: Nelly Schumacher M.D. on 06/04/2020 at 18:39
== END ==
PROVIDERS: PCP Family Medicine; Referring Provider Family Medicine; Visit Provider Physician Assistant Medical
DX: M48.062 Spinal stenosis, lumbar region with neurogenic claudication (principal); M43.16 Spondylolisthesis, lumbar region; M51.36 Other intervertebral disc degeneration, lumbar region
CPT/HCPCS: 72100

== ENCOUNTER → 2020-07-11 10:01 | Outpatient (CLI) | payer MEDICARE, SELFPAY ==
[2019-05-14 17:02] VITALS: BMI 20.9
--- NOTE | 2020-07-11 | DI.RAD.S_ITS ---
PROCEDURE: XR LUMBAR SPINE 2-3V INDICATIONS: LOW BACK PAIN TECHNIQUE: Three views of the lumbar spine were acquired. COMPARISON: [facility], , XR LUMBAR SPINE 2-3V, 06/04/2020, 13:04. FINDINGS: Bones: Five otw-sbe-jyfbbfx vertebrae are present. Grade 1 anterolisthesis L4 on five to a stable degree compared to prior. Posterior stabilization device at the L4-5 level appears in stable position. Moderate degenerative disc height loss, endplate sclerosis, and spurring at the L2-3 level to a stable degree. Moderate L5-S1 and severe L4-5 disc height loss. No vertebral body compression fractures. No suspicious bony lesions. Soft tissues: Overlying bowel gas pattern is normal. No suspicious soft tissue calcifications. IMPRESSION: 1. Stable position of L4-5 stabilization device and stable anterolisthesis at this level. 2. Multilevel disc degeneration is also stable. Dictated by: Nelly Schumacher M.D. on 07/11/2020 at 10:24 Approved by: Nelly Schumacher M.D. on 07/11/2020 at 10:27
== END ==
PROVIDERS: PCP Family Medicine; Referring Provider Physician Assistant Medical; Visit Provider Physician Assistant Medical
DX: M54.5 Low back pain (principal); M43.16 Spondylolisthesis, lumbar region; M51.36 Other intervertebral disc degeneration, lumbar region
CPT/HCPCS: 72100

== ENCOUNTER → 2020-10-09 08:30 | Outpatient (CLI) | payer MEDICARE, SELFPAY ==
[2019-05-14 17:02] VITALS: BMI 20.9
[2020-10-09 09:19] LABS: Alanine Aminotransferase 25 IU/L (<35); Albumin 4.4 g/dL (3.5-5.0); Albumin Globulin Ratio 1.5 (1.0-2.8); Alkaline Phosphatase 81 U/L (38-126); Aspartate Aminotransferase 29 IU/L (14-36); BUN Creatinine Ratio 21.7 (6-22); Bilirubin Total 0.3 mg/dL (0.2-1.3); Blood Urea Nitrogen 15 mg/dL (7-17); Calcium 9.3 mg/dL (8.4-10.2); Carbon Dioxide 29 mmol/L (22-32); Chloride 105 mmol/L (98-107); Estimated Glomerular Filt Rate > 60.0 mL/min (>60); Glucose 124 mg/dL (80-110); HEMOLYSIS < 15 (0-50); Potassium 4.2 mmol/L (3.4-5.1); Sodium 139 mmol/L (137-145); Total Protein 7.4 g/dL (6.3-8.2)
== END ==
PROVIDERS: PCP Family Medicine; Referring Provider Specialist; Visit Provider Specialist
DX: E78.5 Hyperlipidemia, unspecified (principal)
CPT/HCPCS: 36415; 80053; 80061; 83704

== ENCOUNTER → 2020-10-27 11:32 | Outpatient (CLI) | payer MEDICARE, SELFPAY ==
[2019-05-14 17:02] VITALS: BMI 20.9
--- NOTE | 2020-10-27 | DI.MG.S_ITS ---
BILATERAL DIGITAL SCREENING MAMMOGRAM 3D/2D WITH CAD POST LUMPECTOMY: 10/27/2020 CLINICAL: Routine screening. Breast cancer. Comparison is made to exams dated: 10/26/2019 mammogram, 10/10/2018 mammogram, and 09/13/2017 mammogram - [facility]. The tissue of both breasts is heterogeneously dense. This may lower the sensitivity of mammography. Current study was also evaluated with a Computer Aided Detection (CAD) system. There are benign vascular calcifications in both breasts. There also are benign post operative findings in the right breast. No significant masses, calcifications, or other findings are seen in either breast. There has been no significant interval change. IMPRESSION: BENIGN There is no mammographic evidence of malignancy. A 1 year screening mammogram is recommended. This exam was interpreted at Station ID: [id number]. NOTE: For mammograms, a report in lay terms will be sent to the patient. Approximately 15% of breast malignancies will not be visualized mammographically. In the management of a palpable breast mass, a negative mammogram must not discourage biopsy of a clinically suspicious lesion. Electronically Signed By: Seth victor/brendon:10/27/2020 14:34:13 letter sent: Normal Exam ACR BI-RADS Category 2: Benign Finding(s) [id number]
== END ==
PROVIDERS: PCP Family Medicine; Referring Provider Family Medicine; Visit Provider Family Medicine
DX: Z12.31 Encounter for screening mammogram for malignant neoplasm of breast (principal); Z85.3 Personal history of malignant neoplasm of breast
CPT/HCPCS: 77063; 77067

== ENCOUNTER → 2021-01-15 12:41 | Outpatient (CLI) | payer MEDICARE, SELFPAY ==
[2019-05-14 17:02] VITALS: BMI 20.9
--- NOTE | 2021-01-15 12:43 | DI.MRI.S_ITS ---
PROCEDURE: MR SHOULDER LT WO CON INDICATIONS: Strain of muscle, fascia and tendon of other parts TECHNIQUE: Noncontrast oblique coronal T2 fast spin echo with fat saturation, oblique sagittal T1 spin echo and T2 fast spin echo with fat saturation, axial T1 spin echo and T2 fast spin echo with fat saturation through the shoulder. COMPARISON: [facility], MR, SHOULDER WITHOUT CONTRAST, 01/07/2016, 10:11. FINDINGS: Rotator cuff: Infraspinatus tendinopathy and interstitial tearing. There is marked thickening and small partial-thickness articular sided tear and low-grade bursal surface fraying. The teres minor tendon appears intact. Supraspinatus tendinopathy and marked thickening with low-grade bursal and articular surface fraying. Subscapularis tendinopathy and partial-thickness articular sided tear. Fatty infiltration of the supraspinatus and infraspinatus muscles. No definite muscle atrophy. Bones and bursae: No bone marrow contusions or fractures. Moderate hypertrophic acromioclavicular joint degeneration. Severe glenohumeral degenerative joint disease, with areas of full-thickness articular cartilage loss. Scattered degenerative subchondral sclerosis and spurring. Acromion demonstrates conventional anatomy, without an os acromiale. Mild subacromial-subdeltoid bursitis. Capsule and soft tissues: Labrum: Circumferential macerated and ill-defined labral tear which is likely chronic. Long head of the biceps tendon is not well seen presumably ruptured. Obliteration of the subcoracoid fat signal intensity. Coracohumeral ligament intact. IMPRESSION: Severe infraspinatus tendinopathy, interstitial tearing and small partial thickness articular sided tear . Low-grade bursal surface fraying. Supraspinatus tendinopathy with marked thickening. Low-grade bursal and articular surface fraying. Subscapularis tendinopathy with partial thickness articular sided tear. Severe degenerative joint disease with full-thickness chondral loss. Mild subacromial-subdeltoid bursitis Circumferential ill-defined and macerated labral tear which is likely chronic/degenerative. Rupture of the long head biceps tendon Dictated by: Saeed Kim M.D. on 01/15/2021 at 17:34 Approved by: Saeed Kim M.D. on 01/15/2021 at 17:40
== END ==
PROVIDERS: PCP Family Medicine; Referring Provider Physical Medicine & Rehabilitation Pain Medicine; Visit Provider Physical Medicine & Rehabilitation Pain Medicine
DX: S46.112A Strain of muscle, fascia and tendon of long head of biceps, left arm, initial encounter (principal); S46.012A Strain of muscle(s) and tendon(s) of the rotator cuff of left shoulder, initial encounter; M19.012 Primary osteoarthritis, left shoulder; X58.XXXA Exposure to other specified factors, initial encounter
CPT/HCPCS: 73221

== ENCOUNTER → 2021-02-02 11:28 | Outpatient (CLI) | payer MEDICARE, SELFPAY ==
[2019-05-14 17:02] VITALS: BMI 20.9
--- NOTE | 2021-02-02 | DI.RAD.S_ITS ---
PROCEDURE: XR LUMBAR SPINE 2-3V INDICATIONS: Spinal stenosis, lumbar region with neurogenic cla TECHNIQUE: 4 views of the lumbar spine were acquired. COMPARISON: [facility], CR, XR LUMBAR SPINE 2-3V, 07/11/2020, 9:54. FINDINGS: Bones: No acute fracture. Postsurgical changes related to posterior spinal dynamic fixation at the level of L4-L5. Hardware appears intact. Expected postoperative alignment Grade 1/2 anterolisthesis of L4 on L5. Multilevel degenerative endplate sclerosis and spurring. Diffuse facet arthropathy. Moderate narrowing of the L2-L3 and L4-L5 disc space. Mild narrowing of the remaining lumbar disc spaces. Mild left hip joint degeneration. Right hip arthroplasty in expected alignment. Soft tissues: Overlying bowel gas pattern is normal. No suspicious soft tissue calcifications. IMPRESSION: Lumbar spondylosis and postsurgical changes as above. No interval progression since 07/11/20. Dictated by: Saeed Kim M.D. on 02/02/2021 at 14:17 Approved by: Saeed Kim M.D. on 02/02/2021 at 14:19
== END ==
PROVIDERS: PCP Family Medicine; Referring Provider Neurological Surgery; Visit Provider Neurological Surgery
DX: M48.062 Spinal stenosis, lumbar region with neurogenic claudication (principal); M47.816 Spondylosis without myelopathy or radiculopathy, lumbar region; M43.16 Spondylolisthesis, lumbar region; M16.12 Unilateral primary osteoarthritis, left hip; Z96.641 Presence of right artificial hip joint
CPT/HCPCS: 72100

== ENCOUNTER → 2021-06-19 08:22 | Outpatient (CLI) | payer MEDICARE, SELFPAY ==
[2019-05-14 17:02] VITALS: BMI 20.9
[2021-06-19 10:09] LABS: Alanine Aminotransferase 23 IU/L (<35); Albumin 4.3 g/dL (3.5-5.0); Albumin Globulin Ratio 1.7 (1.0-2.8); Alkaline Phosphatase 67 U/L (38-126); Aspartate Aminotransferase 27 IU/L (14-36); BUN Creatinine Ratio 21.9 (6-22); Bilirubin Total 0.5 mg/dL (0.2-1.3); Blood Urea Nitrogen 16 mg/dL (7-17); Calcium 9.4 mg/dL (8.4-10.2); Carbon Dioxide 29 mmol/L (22-32); Chloride 103 mmol/L (98-107); Estimated Glomerular Filt Rate > 60.0 mL/min (>60); Globulin 2.5 g/dL (1.7-4.1); Glucose 115 mg/dL (80-110); HEMOLYSIS < 15 (0-50); Magnesium 2.2 mg/dL (1.6-2.3); Potassium 4.4 mmol/L (3.4-5.1); Sodium 139 mmol/L (137-145); Total Protein 6.8 g/dL (6.3-8.2)
[2021-06-21 10:54] LABS: Cholesterol, Total 137 mg/dL (100-199); HDL-Cholesterol 63 mg/dL (>39); HDL-Particle (Total) 35.6 umol/L (>=30.5); LDL Particle 730 nmol/L (<1000); LDL Size 21.1 nm (>20.5); LDL-Cholsterol 61 mg/dL (0-99); LP-IR Score 26 (<=45); Small LDL- Particle 278 nmol/L (<=527); Triglycerides 62 mg/dL (0-149)
== END ==
PROVIDERS: PCP Family Medicine; Referring Provider Specialist; Visit Provider Specialist
DX: I47.1 Supraventricular tachycardia (principal); E78.5 Hyperlipidemia, unspecified; I10 Essential (primary) hypertension
CPT/HCPCS: 36415; 80053; 80061; 83704; 83735

== ENCOUNTER → 2021-09-02 08:40 | Outpatient (CLI) | payer MEDICARE, SELFPAY ==
[2019-05-14 17:02] VITALS: BMI 20.9
[2021-09-02 12:29] LABS: COVID19 -Nasal RAPID Negative (Negative)
== END ==
PROVIDERS: PCP Family Medicine; Visit Provider Physician Assistant
DX: Z20.822 Contact with and (suspected) exposure to COVID-19 (principal)
CPT/HCPCS: 87635; C9803

== ENCOUNTER → 2021-09-03 07:56 | Outpatient (CLI) | payer MEDICARE, SELFPAY ==
[2019-05-14 17:02] VITALS: BMI 20.9
--- NOTE | 2021-09-03 18:54 | DI.NM.S_ITS ---
DATE OF SERVICE: 09/03/2021 PROCEDURE: Exercise perfusion study. INDICATION: Exertional shortness of breath with history of CAD, LAD stent, hypertension and hyperlipidemia. RADIOPHARMACEUTICAL: 27.3 millicurie technetium-99m Myoview IV was injected at stress and 12.0 millicurie technetium-99m Myoview IV was injected at rest. CARDIAC STRESS: The patient underwent exercise perfusion study under the supervision of an attending staff. The patient walked on Benedict protocol for 3 minutes and 29 seconds, achieved 99 percent of target heart rate, 4.6 METs of workload and functional aerobic impairment positive 22 percent. Baseline blood pressure 132/80 mmHg. Peak blood pressure 158/82 mmHg. No anginal symptoms. The patient felt fatigue. Baseline rhythm was sinus. During stress, no convincing inducible ischemic changes. Occasional PACs. RAW DATA: There was increased subdiaphragmatic activity. GATED STUDY: Stress LV ejection fraction 84 percent without any obvious wall motion abnormalities. Resting end-diastolic volume 74 mL. TID ratio 1.14, which is within normal limits. Lung/heart ratio 0.37, which is within normal limits. MYOCARDIAL PERFUSION SCAN: Stress supine, resting supine and stress prone images revealed normal myocardial perfusion. CONCLUSION: This is a normal myocardial perfusion study. Diminished exercise tolerance. Normal hemodynamic response. No convincing ischemic electrocardiographic changes. Preserved left ventricular function. No significant sustained arrhythmias. No anginal symptoms. Overall low-risk myocardial perfusion scan. Jaiden Michelle - Mc/azeem doc#: [id number]/job#: [id number] dd: 09/03/2021 17:01:00 dt: 09/03/2021 17:46:00 DICTATING MD/COPIES TO: Keyla Salguero MD COPIES MNE: SUDHAKAR;
== END ==
PROVIDERS: PCP Family Medicine; Referring Provider Specialist; Visit Provider Specialist
DX: I25.10 Atherosclerotic heart disease of native coronary artery without angina pectoris (principal); R06.02 Shortness of breath; I10 Essential (primary) hypertension; E78.5 Hyperlipidemia, unspecified; Z95.5 Presence of coronary angioplasty implant and graft
CPT/HCPCS: 78452; 93017; A9502

== ENCOUNTER → 2021-11-04 11:11 | Outpatient (CLI) | payer MEDICARE, SELFPAY ==
[2019-05-14 17:02] VITALS: BMI 20.9
--- NOTE | 2021-11-04 | DI.MG.S_ITS ---
BILATERAL DIGITAL SCREENING MAMMOGRAM 3D/2D WITH CAD: 11/04/2021 CLINICAL: Routine screening. Personal history of right breast cancer. Comparison is made to exams dated: 10/27/2020 mammogram, 10/26/2019 mammogram, and 10/10/2018 mammogram - [facility]. The tissue of both breasts is heterogeneously dense. This may lower the sensitivity of mammography. Current study was also evaluated with a Computer Aided Detection (CAD) system. There are benign vascular calcifications in both breasts. There also are benign post operative findings in the right breast. No significant masses, calcifications, or other findings are seen in either breast. There has been no significant interval change. IMPRESSION: BENIGN There is no mammographic evidence of malignancy. A 1 year screening mammogram is recommended. This exam was interpreted at Station ID: [id number]. NOTE: For mammograms, a report in lay terms will be sent to the patient. Approximately 15% of breast malignancies will not be visualized mammographically. In the management of a palpable breast mass, a negative mammogram must not discourage biopsy of a clinically suspicious lesion. Electronically Signed By: Seth victor/brendon:11/04/2021 11:55:42 letter sent: Normal Exam ACR BI-RADS Category 2: Benign Finding(s) 3342F
== END ==
PROVIDERS: PCP Family Medicine; Referring Provider Family Medicine; Visit Provider Family Medicine
DX: Z12.31 Encounter for screening mammogram for malignant neoplasm of breast (principal); Z85.3 Personal history of malignant neoplasm of breast
CPT/HCPCS: 77063; 77067

== ENCOUNTER → 2022-01-06 08:31 | Outpatient (CLI) | payer MEDICARE, SELFPAY ==
[2019-05-14 17:02] VITALS: BMI 20.9
[2022-01-06 10:06] LABS: Alanine Aminotransferase 25 IU/L (<35); Albumin 4.5 g/dL (3.5-5.0); Albumin Globulin Ratio 1.5 (1.0-2.8); Alkaline Phosphatase 56 U/L (38-126); Aspartate Aminotransferase 30 IU/L (14-36); BUN Creatinine Ratio 18.2 (6-22); Bilirubin Total 0.6 mg/dL (0.2-1.3); Blood Urea Nitrogen 14 mg/dL (7-17); Calcium 9.1 mg/dL (8.4-10.2); Carbon Dioxide 30 mmol/L (22-32); Chloride 102 mmol/L (98-107); Cholesterol 139 mg/dL (140-199); Estimated Glomerular Filt Rate > 60 mL/min (>60); Glucose 114 mg/dL (80-110); HDL Cholesterol 67 mg/dL (40-60); HEMOLYSIS < 15 (0-50); LDL Cholesterol Calculated 57 mg/dL (<100); Potassium 4.4 mmol/L (3.4-5.1); Sodium 138 mmol/L (137-145); Total Protein 7.5 g/dL (6.3-8.2); Triglycerides 76 mg/dL (35-150)
== END ==
PROVIDERS: PCP Family Medicine; Referring Provider Specialist; Visit Provider Specialist
DX: E78.5 Hyperlipidemia, unspecified (principal)
CPT/HCPCS: 36415; 80053; 80061

== ENCOUNTER → 2022-02-03 11:09 | Outpatient (CLI) | payer MEDICARE, SELFPAY ==
[2019-05-14 17:02] VITALS: BMI 20.9
--- NOTE | 2022-02-03 | DI.MRI.S_ITS ---
PROCEDURE: MR LUMBAR SPINE WO CON INDICATIONS: Radiculopathy, lumbar region TECHNIQUE: Noncontrast sagittal T1 spin echo and T2 fast echo, sagittal STIR, axial T1 and T2 fast spin echo through the lumbar spine. Axial and oblique coronal T1 spin echo and STIR through the sacrum. In cases with scoliosis, additional coronal T2 fast spin echo may be performed. COMPARISON: [facility], MR, MR LUMBAR SPINE WO CON, 05/03/2020, 15:27. [facility], CR, XR LUMBAR SPINE 2-3V, 02/02/2021, 11:48. [facility], MR, L-SPINE WITHOUT CONTRAST, 10/23/2012, 17:44. [facility], MR, MR LUMBAR SPINE WO CON, 08/24/2019, 16:32. FINDINGS: Image quality: There is artifact associated with the metallic hardware. Alignment and Curvature: There is grade 1/2 anterolisthesis at L4-L5, as before. Bone Marrow: Marrow is of normal overall signal. No acute vertebral body compression fractures. No sacral fractures. Spinal Cord: Conus medullaris terminates at the L1 level. Visualized cord demonstrates normal signal and size. Paraspinous Soft Tissues: No paravertebral masses. T12-L1: Normal appearance. L1-L2: The disc height and disk signal are well-preserved. Mild generalized disc bulge is seen. Mild facet joint hypertrophy is seen. No significant neural foraminal or central canal narrowing can be seen. When comparison is made with the prior images, these findings are similar. L2-L3: The disc height is well-preserved. Loss of disc signal is seen at this level. At least moderate disc bulge is seen. There is a superimposed central disc protrusion. Moderate facet joint hypertrophy is seen. There is at least moderate bilateral neural foraminal narrowing seen. Moderate to severe central canal narrowing is seen. No significant change from the prior. L3-L4: Mild loss of disc height is seen. Loss of disc signal is seen. Postoperative change is seen, with prior right hemilaminectomy. Moderate generalized disc bulge is seen. A mild superimposed central disc extrusion is seen, with mild inferior migration of the disc material. Moderate to prominent facet hypertrophy is seen. There is moderate to severe bilateral neural foraminal narrowing seen, with an associated a degree of compression seen upon the exiting nerve roots. Moderate central canal narrowing is seen. The degree of central canal narrowing is clearly improved compared to the preoperative 2020 examination. L4-L5: Moderate loss of disc height is seen. Loss of disc signal is seen. Postoperative change is seen at this level, with removal of portions of the posterior elements. A metallic spinous process fusion device can be seen. Central disc extrusion is seen, with superior migration of the disc material. Prominent facet hypertrophy is seen. There is moderate to severe bilateral neural foraminal narrowing seen, with an associated a degree of compression seen upon the exiting nerve roots. Moderate central canal narrowing is seen. The degree of central canal narrowing is clearly improved compared to the prior MRI. L5-S1: The disc height is well-preserved. Loss of disc signal is seen at this level. Moderate generalized disc bulge is seen. Moderate to prominent facet hypertrophy is seen. There is moderate to severe bilateral neural foraminal narrowing seen, with an associated a degree of compression seen upon the exiting nerve roots. Moderate central canal narrowing is seen. When comparison is made with the prior images, these findings are similar. Sacrum: Sacral neural foramina appear normal throughout. Superior to the piriformis muscles, the pre-plexal structures appear normal, including the lumbosacral trunk and S1 root. Just anterior to the piriformis muscles, the sacral plexus proper demonstrates normal morphology (lumbosacral trunk, S1 to S3 nerve roots). Inferior to the piriformis muscles, the sciatic nerves appear normal. IMPRESSION: Postoperative changes are seen at L3-L4 and L4-L5, with clear interval improvement in the degrees of central canal narrowing at these levels compared to the preoperative 2020 MRI examination. Multiple levels of degenerative change are seen, which are otherwise not significantly changed compared to 2020. Dictated by: Kendell Magdaleno M.D. on 02/03/2022 at 15:23 Approved by: Kendell Magdaleno M.D. on 02/03/2022 at 15:27
== END ==
PROVIDERS: PCP Family Medicine; Referring Provider Family Medicine; Visit Provider Family Medicine
DX: M47.27 Other spondylosis with radiculopathy, lumbosacral region (principal); M21.372 Foot drop, left foot; M47.26 Other spondylosis with radiculopathy, lumbar region; Z98.1 Arthrodesis status
CPT/HCPCS: 72148

== ENCOUNTER → 2022-10-28 13:41 | Outpatient (CLI) | payer MEDICARE, SELFPAY ==
[2019-05-14 17:02] VITALS: BMI 20.9
--- NOTE | 2022-10-28 | DI.ECHO.S_ITS ---
[facility]---------+ [facility] +---------+ : : [address] : : : : [id number] : : : : Phone: [phone] Echocardiogram Report + + :Name: LUC YEH Study Date: 10/28/2022 Height: 65 in : :[facility] ReadingLocation: Weight: 130 lb : : Gender: Female BSA: 1.6 m2 : :: 1940 Age: 82 yrs BP: 142/82 mmHg: :Reason For Study: Supraventricular tachycardia : :Ordering Physician: Connor : :Deirdre Dolan Performed By: Mariajose Douglass : :Referring: CONNOR DOLAN : + + Interpretation Summary Left ventricular systolic function remains normal with an ejection fraction of 60 to 65% without focal wall motion abnormality and appears unchanged. Left ventricular size remains normal. While wall thickness measures somewhat increased, image quality is somewhat poor. Diastolic function is likely normal with normal filling pressures. Overall, there has been no significant change. The right ventricle remains normal and unchanged. Right ventricular systolic pressure cannot be estimated but CVP is likely around 3 mmHg. Both atria normal in size and unchanged. There is no significant valvular abnormality. There is trivial mitral regurgitation that is less prominent and trivial aortic regurgitation that is slightly more prominent compared to the previous study but no significant changes from the previous study. The ascending aorta remains borderline enlarged but unchanged. The patient was in sinus rhythm with occasional PVCs. Procedure: A two-dimensional transthoracic echocardiogram with color flow and Doppler was performed. The study quality was technically adequate. The patient was in sinus bradycardia with heart rates between 49-67 bpm during the exam. The patient had occasional PVCs during the exam. Left Ventricle: The left ventricle is normal in size. Left ventricular wall thickness is borderline increased. The ejection fraction is estimated to be 60-65%. Left ventricular systolic function appears normal without focal wall motion abnormalities. Diastolic parameters suggest probable normal left ventricular diastolic function and normal filling pressures. There has been no significant change since the previous study. Right Ventricle: The right ventricle is normal in size and function. This is unchanged compared to the previous study. Atria: Both atria are normal in size. This is unchanged compared to the previous study. There is no Doppler evidence for an interatrial shunt. Mitral Valve: The mitral valve is normal in structure and function. There is trace mitral regurgitation. This is less prominent compared to the previous study. Aortic Valve: The aortic valve is normal in structure and function. The aortic valve is trileaflet. The aortic valve opens well. There is trace aortic regurgitation. This is more prominent compared to the previous study. Tricuspid Valve: The leaflets are slightly redunant and mobile. The tricuspid valve is normal in structure and function. There is trace tricuspid regurgitation. Pulmonary artery pressures cannot be estimated because of the lack of a measurable TR jet velocity but the IVC suggests a CVP of around 3 mmHg. Pulmonic Valve: The pulmonic valve leaflets are thin and pliable; valve motion is normal. There is a trace or physiologic amount of pulmonic regurgitation. Great Vessels: The ascending aorta is at the upper limits of normal in size. This is unchanged compared to the previous study. The IVC is of normal diameter and collapses greater than 50% with a sniff. This suggests a low right atrial pressure of 3 mm Hg. Pericardium/ Pleura There is no pericardial effusion. There is no pleural effusion. MMode/2D Measurements & Calculations LVIDd: 4.3 cm LVOT diam: 1.8 cm LVIDs: 3.0 cm Ao root diam: 2.8 cm FS: 30.2 % asc Aorta Diam: 3.4 cm EPSS: 0.20 cm IVSd: 1.3 cm LVPWd: 1.1 cm LV rose. diameter/BSA (cm/m^2): 2.6 LV sys. diameter/BSA (cm/m^2): 1.8 LA dimension: 3.7 cm RA long axis: 4.4 cm LA A2 area: 16.8 cm2 RA area: 12.8 cm2 LA A4 area: 15.1 cm2 RA vol: 31.8 ml LA length (vol): 4.8 cm RA : 19.3 ml/m2 LA vol: 44.6 ml LA vol index: 27.1 ml/m2 RVD1 (basal): 3.4 cm LVLs ap4: 6.0 cm LVLd ap2: 6.9 cm TAPSE_phl: 3.4 cm LVLs ap2: 4.3 cm Doppler Measurements & Calculations Ao V2 max: 146.0 cm/sec LVOT Max Ramesh: 138.0 cm/sec Ao V2 mean: 105.0 cm/sec LV V1 max P.6 mmHg Ao max P.0 mmHg LV V1 VTI: 35.4 cm Ao mean P.0 mmHg YOHANA(I,D): 2.6 cm2 Ao V2 VTI: 34.9 cm YOHANA(V,D): 2.4 cm2 sev ratio: 1.0 YOHANA indexed to BSA (cm^2/m^2): 1.6 MV E max ramesh: 66.0 cm/sec TR max ramesh: 182.0 cm/sec MV A max ramesh: 46.0 cm/sec TR max P.2 mmHg MV E/A: 1.4 PA V2 max: 79.7 cm/sec Med Peak E' Ramesh: 7.0 cm/sec PA V2 mean: 52.8 cm/sec E/E' med: 9.5 PA mean P.0 mmHg Lat Peak E' Ramesh: 10.8 cm/sec E/E' lat: 6.1 E/e' average: 7.8 MV dec time: 0.23 sec MVA(VTI): 2.8 cm2 MV V2 mean: 48.1 cm/sec SV(LVOT): 90.1 ml MV mean P.0 mmHg MV V2 VTI: 32.1 cm AV VR_phl: 0.95 YOHANA(VTI)/BSA_phl: 1.6 Reading Physician:11:25 AM
== END ==
PROVIDERS: PCP Family Medicine; Referring Provider Specialist; Visit Provider Specialist
DX: I47.1 Supraventricular tachycardia (principal)
CPT/HCPCS: 93306

== ENCOUNTER → 2022-11-01 08:22 | Outpatient (CLI) | payer MEDICARE, SELFPAY ==
[2019-05-14 17:02] VITALS: BMI 20.9
[2022-11-01 10:31] LABS: Alanine Aminotransferase 29 IU/L (<35); Albumin 4.6 g/dL (3.5-5.0); Albumin Globulin Ratio 1.5 (1.0-2.8); Alkaline Phosphatase 71 U/L (38-126); Aspartate Aminotransferase 30 IU/L (14-36); BUN Creatinine Ratio 21.9 (6-22); Bilirubin Total 0.6 mg/dL (0.2-1.3); Blood Urea Nitrogen 16 mg/dL (7-17); Calcium 9.5 mg/dL (8.4-10.2); Carbon Dioxide 29 mmol/L (22-32); Chloride 101 mmol/L (98-107); Estimated Glomerular Filt Rate > 60 mL/min (>60); Globulin 3.1 g/dL (1.7-4.1); Glucose 106 mg/dL (80-110); HEMOLYSIS < 15 (0-50); Magnesium 2.1 mg/dL (1.6-2.3); Potassium 4.5 mmol/L (3.4-5.1); Sodium 138 mmol/L (137-145); Total Protein 7.7 g/dL (6.3-8.2)
[2022-11-04 12:53] LABS: Cholesterol, Total 147 mg/dL (100-199); HDL-Cholesterol 71 mg/dL (>39); HDL-Particle (Total) 37.7 umol/L (>=30.5); LDL Particle 713 nmol/L (<1000); LDL Size 20.7 nm (>20.5); LDL-Cholsterol 64 mg/dL (0-99); LP-IR Score 33 (<=45); Small LDL- Particle 480 nmol/L (<=527); Triglycerides 56 mg/dL (0-149)
== END ==
PROVIDERS: PCP Family Medicine; Referring Provider Specialist; Visit Provider Specialist
DX: I10 Essential (primary) hypertension (principal); E78.5 Hyperlipidemia, unspecified; I49.1 Atrial premature depolarization; I47.1 Supraventricular tachycardia
CPT/HCPCS: 36415; 80053; 80061; 83704; 83735

== ENCOUNTER → 2022-11-17 13:59 | Outpatient (CLI) | payer MEDICARE, SELFPAY ==
[2019-05-14 17:02] VITALS: BMI 20.9
--- NOTE | 2022-11-17 14:01 | DI.MG.S_ITS ---
BILATERAL DIGITAL SCREENING MAMMOGRAM 3D/2D WITH CAD: 11/17/2022 CLINICAL: Routine screening. Personal history of right breast cancer. Comparison is made to exams dated: 11/04/2021 mammogram, 10/27/2020 mammogram, and 10/26/2019 mammogram - [facility]. Both breasts are heterogeneously dense, which may obscure small masses (category c / 51-75% glandular tissue). Current study was also evaluated with a Computer Aided Detection (CAD) system. There are benign vascular calcifications in both breasts. There also are benign post operative findings in the right breast. No significant masses, calcifications, or other findings are seen in either breast. There has been no significant interval change. IMPRESSION: BENIGN There is no mammographic evidence of malignancy. A 1 year screening mammogram is recommended. This exam was interpreted at Station ID: [id number]. NOTE: For mammograms, a report in lay terms will be sent to the patient. Approximately 15% of breast malignancies will not be visualized mammographically. In the management of a palpable breast mass, a negative mammogram must not discourage biopsy of a clinically suspicious lesion. Electronically Signed By: Stas sanchez/brendon:11/17/2022 16:53:41 letter sent: Normal Exam ACR BI-RADS Category 2: Benign Finding(s) 3342F
== END ==
PROVIDERS: PCP Family Medicine; Referring Provider Family Medicine; Visit Provider Family Medicine
DX: Z12.31 Encounter for screening mammogram for malignant neoplasm of breast (principal); Z85.3 Personal history of malignant neoplasm of breast
CPT/HCPCS: 77063; 77067

== ENCOUNTER → 2023-03-02 11:06 | Outpatient (CLI) | payer MEDICARE, SELFPAY ==
[2019-05-14 17:02] VITALS: BMI 20.9
--- NOTE | 2023-03-02 | DI.RAD.S_ITS ---
PROCEDURE: XR RIBS RT MIN 3V W CXR 1V INDICATIONS: Pleurodynia TECHNIQUE: 2 views of the right ribs were acquired, along with a single view chest. COMPARISON: None. FINDINGS: Surgical changes and devices: None. Bones and chest wall: No fractures or dislocations. No suspicious bony lesions. Overlying soft tissues appear unremarkable. Lungs and pleura: No pleural effusions or pneumothorax. Lungs appear clear. Mediastinum: Mediastinal contours appear normal. Heart size is normal. IMPRESSION: No acute fracture. No osseous lesion. If symptoms and/or clinical suspicion for pathology persist, further assessment with repeat, or advanced imaging (e.g., CT, MRI, or bone scan) may be helpful for further assessment. Dictated by: Corrie Miramontes M.D. on 03/02/2023 at 11:34 Approved by: Corrie Miramontes M.D. on 03/02/2023 at 11:35
== END ==
PROVIDERS: PCP Family Medicine; Referring Provider Family Medicine; Visit Provider Family Medicine
DX: R07.81 Pleurodynia (principal)
CPT/HCPCS: 71101

== ENCOUNTER → 2023-04-13 10:39 | Outpatient (CLI) | payer MEDICARE, SELFPAY ==
[2019-05-14 17:02] VITALS: BMI 20.9
--- NOTE | 2023-04-13 10:41 | DI.RAD.S_ITS ---
PROCEDURE: XR HAND RT 2V INDICATIONS: arthritis of finger of both hands TECHNIQUE: 3 views of the hand(s) acquired. COMPARISON: [facility], , HAND 3V RIGHT, 01/03/2007, 10:59. FINDINGS: Bones: No acute fracture. There are severe hypertrophic degenerative changes involving the distal interphalangeal joints with prominent marginal osteophytes. Suggestion of mild periarticular erosions. Findings involve all 5 fingers. Moderate-severe degenerative changes of the proximal interphalangeal joints of the 2nd through 5th fingers. Moderate metacarpophalangeal joint degenerative changes of the thumb, 3rd, 4th, and 5th fingers with severe metacarpophalangeal joint degenerative changes of the 2nd metacarpophalangeal joint. There also moderate degenerative changes of the 1st carpometacarpal joint and triscaphe joint. Soft tissues: No suspicious soft tissue calcifications. 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 There also moderate degenerative changes of the 1st carpometacarpal and triscaphe joints. 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 Dictated by: Stas Velazco M.D. on 04/13/2023 at 11:29 Approved by: Stas Velazco M.D. on 04/13/2023 at 11:35
--- NOTE | 2023-04-13 10:41 | DI.RAD.S_ITS ---
PROCEDURE: XR HAND LT 2V INDICATIONS: arthritis of finger of both hands TECHNIQUE: 3 views of the hand(s) acquired. COMPARISON: [facility], , HAND 3V RIGHT, 01/03/2007, 10:59. FINDINGS: Bones: No acute fracture. Severe hypertrophic osteoarthritic changes with mild erosions noted in the distal interphalangeal joints of all 5 fingers as well as the proximal interphalangeal joint of the 2nd through 5th fingers. Moderate degenerative changes of the metacarpophalangeal joints of the left hand involving the thumb, 2nd, 4th, and 5th fingers with moderate-severe 3rd metacarpophalangeal joint degenerative change. Severe degenerative changes of the left thumb carpometacarpal and triscaphe joints. Soft tissues: No suspicious soft tissue calcifications. IMPRESSION: Left hand without acute osseous abnormalities. 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 Dictated by: Stas Velazco M.D. on 04/13/2023 at 11:36 Approved by: Stas Velazco M.D. on 04/13/2023 at 11:38
== END ==
PROVIDERS: PCP Family Medicine; Referring Provider Family Medicine; Visit Provider Family Medicine
DX: M19.041 Primary osteoarthritis, right hand (principal); M19.042 Primary osteoarthritis, left hand
CPT/HCPCS: 73120

== ENCOUNTER → 2023-07-18 10:14 | Outpatient (CLI) | payer MEDICARE, SELFPAY ==
[2019-05-14 17:02] VITALS: BMI 20.9
--- NOTE | 2023-07-18 | DI.US.S_ITS ---
LIMITED ULTRASOUND OF RIGHT BREAST: 07/18/2023 CLINICAL: Diffuse right breast pain. Comparison is made to exams dated: 07/18/2023 mammogram, 11/17/2022 mammogram, 11/04/2021 mammogram, 10/27/2020 mammogram, 10/26/2019 mammogram, and 10/10/2018 mammogram - [facility]. Real-time ultrasound of the right breast 6 o'clock, 9 o'clock, 12 o'clock, and retroareolar regions was performed. Celaya scale images of the real-time examination were reviewed. No mass or cyst in the region of pain. IMPRESSION: BENIGN There is no sonographic evidence of malignancy. No mass or cyst in the region of pain. Exam findings were conveyed to the patient. Patient is advised to monitor for significant change. Clinical follow-up as needed. A 1 year screening mammogram is recommended. 11/18/2023 This exam was interpreted at Station ID: [id number]. Electronically Signed By: Jose Bledsoe M.D. slc/:07/18/2023 16:38:47 letter sent: Normal Exam Ultrasound BI-RADS: 2 Benign
--- NOTE | 2023-07-18 | DI.MG.S_ITS ---
UNILATERAL RIGHT DIGITAL DIAGNOSTIC MAMMOGRAM 3D/2D: 07/18/2023 CLINICAL: Diffuse right breast pain. Comparison is made to exams dated: 11/17/2022 mammogram, 11/04/2021 mammogram, and 10/27/2020 mammogram - [facility]. The right breast is heterogeneously dense, which may obscure small masses (category c / 51-75% glandular tissue). No significant masses, calcifications, or other findings are seen in the breast. Stable post-operative findings in the right breast. IMPRESSION: INCOMPLETE: NEEDS ADDITIONAL IMAGING EVALUATION No mammographic evidence of malignancy. A targeted ultrasound is recommended and will immediately follow. This exam was interpreted at Station ID: [id number]. NOTE: For mammograms, a report in lay terms will be sent to the patient. Approximately 15% of breast malignancies will not be visualized mammographically. In the management of a palpable breast mass, a negative mammogram must not discourage biopsy of a clinically suspicious lesion. Electronically Signed By: Jose Bledsoe M.D. slc/:07/18/2023 16:36:10 ACR BI-RADS Category 0: Incomplete 3340F
== END ==
PROVIDERS: PCP Family Medicine; Referring Provider Family Medicine; Visit Provider Family Medicine
DX: N64.4 Mastodynia (principal); R92.2 Inconclusive mammogram
CPT/HCPCS: 76642; 77065; G0279

== ENCOUNTER → 2023-10-03 08:45 | Outpatient (CLI) | payer MEDICARE, SELFPAY ==
[2019-05-14 17:02] VITALS: BMI 20.9
[2023-10-03 10:47] LABS: Alanine Aminotransferase 25 IU/L (<35); Albumin 4.4 g/dL (3.5-5.0); Albumin Globulin Ratio 1.3 (1.0-2.8); Alkaline Phosphatase 65 U/L (38-126); Aspartate Aminotransferase 33 IU/L (14-36); BUN Creatinine Ratio 23.2 (6-22); Bilirubin Total 0.5 mg/dL (0.2-1.3); Blood Urea Nitrogen 16 mg/dL (7-17); Calcium 9.3 mg/dL (8.4-10.2); Carbon Dioxide 28 mmol/L (22-32); Chloride 102 mmol/L (98-107); Cholesterol 131 mg/dL (140-199); Estimated Glomerular Filt Rate > 60 mL/min (>60); Globulin 3.4 g/dL (1.7-4.1); Glucose 114 mg/dL (80-110); HDL Cholesterol 59 mg/dL (40-60); HEMOLYSIS < 15 (0-50); LDL Cholesterol Calculated 62 mg/dL (<100); Magnesium 2.1 mg/dL (1.6-2.3); Potassium 4.1 mmol/L (3.4-5.1); Sodium 137 mmol/L (137-145); Total Protein 7.8 g/dL (6.3-8.2); Triglycerides 52 mg/dL (35-150)
== END ==
PROVIDERS: Family Provider Family Medicine; PCP Family Medicine; Referring Provider Specialist; Visit Provider Specialist
DX: E78.5 Hyperlipidemia, unspecified (principal); I10 Essential (primary) hypertension
CPT/HCPCS: 36415; 80053; 80061; 83735

== ENCOUNTER 2023-10-12 09:54 | Emergency (ER) | payer MEDICARE, SELFPAY ==
[2019-05-14 17:02] VITALS: BMI 20.9
[2023-10-12] VITALS (11 sets, daily range): BP systolic 102–146; BP diastolic 55–68; PULSE 62–89; RESP 12–29; TEMP 36.9; O2SAT 90–96; BMI 24.3
--- NOTE | 2023-10-12 10:05 | DI.RAD.S_ITS ---
PROCEDURE: XR CHEST 1V INDICATIONS: chest pain TECHNIQUE: One view of the chest was acquired. COMPARISON: [facility], CR, XR CHEST 2V, 03/02/2019, 12:19. FINDINGS: Surgical changes and devices: None. Lungs and pleura: Lungs are clear. No pleural effusions or pneumothorax. Mediastinum: Mediastinal contours appear normal. Heart size is normal. Bones and chest wall: No suspicious bony lesions. Overlying soft tissues appear unremarkable. IMPRESSION: No acute cardiopulmonary abnormality is seen. Dictated by: Corrie Miramontes M.D. on 10/12/2023 at 10:35 Approved by: Corrie Miramontes M.D. on 10/12/2023 at 10:35
[2023-10-12 10:18] LABS: Add Manual Diff / Slide Review NO; Basophils Absolute Auto 0 /uL (0-100); Basophils Percent Auto 0.4 % (0-2); Eosinophils Absolute Auto 100 /uL (0-450); Eosinophils Percent Auto 0.9 % (2-4); Hematocrit 40.4 % (36-46); Hemoglobin 13.7 g/dL (12.0-16.0); Lymphocytes Absolute Auto 1800 /uL (1100-4500); Lymphocytes Percent Auto 22.8 % (25-40); Mean Corpuscular HGB Conc 33.8 % (30-36); Mean Corpuscular Hemoglobin 31.3 PG (26-34); Mean Corpuscular Volume 92.7 fL (80-100); Monocytes Absolute Auto 900 /uL (0-900); Monocytes Percent Auto 10.9 % (3-14); Neutrophils Absolute Auto 5100 /uL (1500-7000); Platelet Count 236 X10^3/uL (150-400); Red Blood Cell Count 4.36 X10^6/uL (4.0-5.2); Red Cell Distribution Width 13.8 % (11.6-14.8); White Blood Cell Count 7.9 X10^3/uL (4.5-11.0)
[2023-10-12] MEDS: ASPIRIN 81 MG CHEW TAB 243 MG PO (10:19)
[2023-10-12 10:28] LABS: Prothrombin Time 11.4 SECONDS (9.4-12.5)
[2023-10-12 10:30] LABS: PTT Partial Thromboplastin Tim 27 SECONDS (25.1-36.5)
[2023-10-12 10:33] LABS: Alanine Aminotransferase 27 IU/L (<35); Albumin 4.6 g/dL (3.5-5.0); Albumin Globulin Ratio 1.3 (1.0-2.8); Alkaline Phosphatase 59 U/L (38-126); Aspartate Aminotransferase 32 IU/L (14-36); BUN Creatinine Ratio 23.1 (6-22); Bilirubin Total 0.5 mg/dL (0.2-1.3); Blood Urea Nitrogen 18 mg/dL (7-17); Calcium 9.6 mg/dL (8.4-10.2); Carbon Dioxide 22 mmol/L (22-32); Chloride 103 mmol/L (98-107); Creatine Kinase 142 U/L (30-135); Estimated Glomerular Filt Rate > 60 mL/min (>60); Globulin 3.6 g/dL (1.7-4.1); Glucose 192 mg/dL (80-110); HEMOLYSIS < 15 (0-50); Lipase 108 U/L (23-300); Magnesium 2.1 mg/dL (1.6-2.3); Potassium 4.2 mmol/L (3.4-5.1); Sodium 136 mmol/L (137-145); Total Protein 8.2 g/dL (6.3-8.2)
--- NOTE | 2023-10-12 10:41 | ED.CHESTPAIN ---
HPI - Chest Pain General Chief Complaint: Chest Pain Stated Complaint: having heart palpatations chest pain Time Seen by Provider: 10/12/23 09:55 Source: patient Mode of arrival: Ambulatory Limitations: no limitations History of Present Illness HPI narrative: 83-year-old female with history of AFib on diltiazem presents by private vehicle from home for a 30 minute episode of chest pain yesterday as well as intermittent palpitations. Patient states she came in because the palpitations have become more persistent, and in addition she has noticed worsening fatigue and shortness of breath during her normal activities. She has a follow up appointment with her delicatessen slicer within the next month, but all of her symptoms cause her to become concerned enough that she decided to seek care in the emergency department. Currently pain-free. Related Data Home Medications Medication Instructions Recorded Confirmed calcium carbonate 600 mg-vitamin 1 tab PO DAILY ##0 03/07/12 12/10/19 D3 5 mcg (200 unit) capsule (Calcium 600 + D(3)) multivitamin 1 cap PO DAILY ##0 03/07/12 12/10/19 omeprazole magnesium 20 mg 20 mg PO QDAY PRN Acid Reflux ##0 01/10/18 12/10/19 tablet,delayed release (Prilosec OTC) diltiazem HCl 180 mg capsule,24 180 mg PO BID 05/08/19 12/10/19 hr,extended release Previous Rx's Medication Instructions Recorded aspirin 81 mg tablet,delayed 81 mg PO BID #30 tabs 05/15/19 release tramadol 50 mg tablet 50 mg PO Q6H PRN pain #15 tabs 05/15/19 meloxicam 7.5 mg tablet See Rx Instructions .Route 10/12/19 .COMPLEX #30 tabs atorvastatin 40 mg tablet 40 mg PO DAILY #90 tabs 12/10/19 pramipexole 0.5 mg tablet 0.75 mg (1.5 x 0.5 mg) PO BEDTIME 12/17/19 #45 tabs pramipexole 0.5 mg tablet See Rx Instructions .Route 05/15/20 .COMPLEX #135 tabs Allergies Allergy/AdvReac Type Severity Reaction Status Date / Time No Known Drug Allergies Allergy Verified 12/10/19 10:25 Review of Systems Review of Systems Narrative: Otherwise negative Patient History Medical History Easy bruisability Breast cancer, right (~2000) Lower back pain Acid reflux HTN (hypertension) SVT (supraventricular tachycardia) Bronchitis (~02/2019) Neuropathy Osteoarthritis (~1995) Restless leg syndrome (~1979) Breast cancer (~2000) Seasonal allergies (~2010) Shoulder pain (~2014) Osteoporosis (~1994) Back pain (~2014) Foot pain (~2012) Chicken pox (~1973) Hyperlipidemia Coronary artery disease (~1998) Cardiac arrhythmia Surgical History Hx of foot surgery (~06/2018) Hx of heart artery stent (~1998) Hx of bilateral cataract extraction (~2017) Anesthesia History of surgery (~1998) History of lumpectomy (~2000) Family History Father Stroke Grandmother Mental health problem Mother Heart disease Grandmother Mental health problem Grandmother Mental health problem Sister Age: 84 Cancer of kidney Hypertension Mental health problem Social History household members: spouse Smoking Status: Never smoker alcohol intake: current substance use type: does not use Smoking Status: Never smoker alcohol intake frequency: a few times a week Substance Use Type: does not use Exam Initial Vital Signs Initial Vital Signs: Vital Signs Temperature 98.4 F 10/12/23 09:55 Pulse Rate 79 10/12/23 09:55 Respiratory Rate 14 10/12/23 09:55 Blood Pressure 146/68 H 10/12/23 09:55 Pulse Oximetry 93 10/12/23 09:55 Oxygen Delivery Method Room Air 10/12/23 09:55 Const: Awake, alert, no acute distress, nontoxic appearing Cardiac: regular rate, regular rhythm RESP: unlabored, clear bilaterally, no wheezing GI: Atraumatic, soft, nontender, nondistended, no rebound, no guarding MSK: Atraumatic, full range of motion, pulses equal Skin: Warm, Dry, intact, no rashes Neuro: AO x3, CN II-XII grossly intact, moves all extremities Psych: affect normal, mood normal, not suicidal, not homicidal Course Orders Ordered: ED Orders 10/12/23 10:05 XR chest 1V Stat EKG-12 Lead Stat 10/12/23 10:10 BNP [NT-proBNP (BNP-Adult 18+)] Stat Complete Blood Count AUTO DIFF Stat Comprehensive Metabolic Panel Stat D Dimer Stat Lipase Stat Magnesium Stat PTT Partial Thromboplastin Herminio Stat Prothrombin Time INR Stat Troponin & CK Cardiac Panel Stat Discontinued Medications Aspirin (Aspirin 81 Mg Chew Tab) 243 mg PO NOW ONE Stop: 10/12/23 10:06 Last Admin: 10/12/23 10:19 Dose: 243 mg Documented By: SB Vital Signs Vital signs: Vital Signs - 8 hr 10/12/23 09:55 10/12/23 10:00 10/12/23 10:02 Temperature 98.4 F Pulse Rate 79 89 82 Respiratory Rate 14 20 20 Blood Pressure 146/68 H Pulse Oximetry 93 96 96 Oxygen Delivery Method Room Air 10/12/23 10:02 10/12/23 10:15 10/12/23 10:30 Temperature Pulse Rate 72 Respiratory Rate 15 Blood Pressure 146/68 H 133/61 Pulse Oximetry 94 Oxygen Delivery Method Room Air 10/12/23 10:30 10/12/23 10:45 10/12/23 11:00 Temperature Pulse Rate 71 70 Respiratory Rate 21 16 Blood Pressure 119/59 L Pulse Oximetry 93 93 Oxygen Delivery Method 10/12/23 11:00 10/12/23 11:15 10/12/23 11:30 Temperature Pulse Rate 66 62 Respiratory Rate 13 29 H Blood Pressure 102/61 Pulse Oximetry 95 90 L Oxygen Delivery Method Room Air 10/12/23 11:30 10/12/23 11:45 10/12/23 12:00 Temperature Pulse Rate 65 66 63 Respiratory Rate 19 15 12 Blood Pressure Pulse Oximetry 91 91 95 Oxygen Delivery Method Room Air 10/12/23 12:00 Temperature Pulse Rate Respiratory Rate Blood Pressure 111/55 L Pulse Oximetry Oxygen Delivery Method MDM - Chest Pain Differential Diagnosis Differential diagnosis: Likely unstable angina pectoris, atypical chest pain, costochondritis and chest pain Lab Data 10/12/23 10:10 10/12/23 10:10 Labs: Lab Results 10/12/23 Range/Units 10:10 WBC 7.9 (4.5-11.0) X10^3/uL RBC 4.36 (4.0-5.2) X10^6/uL Hgb 13.7 (12.0-16.0) g/dL Hct 40.4 (36-46) % MCV 92.7 (80-100) fL MCH 31.3 (26-34) PG MCHC 33.8 (30-36) % RDW 13.8 (11.6-14.8) % Plt Count 236 (150-400) X10^3/uL Neut % (Auto) 65.0 (50-75) % Lymph % (Auto) 22.8 L (25-40) % [place] % (Auto) 10.9 (3-14) % Eos % (Auto) 0.9 L (2-4) % Baso % (Auto) 0.4 (0-2) % Neut # (Auto) 5100 (6801-1363) /uL Lymph # (Auto) 1800 (1386-7156) /uL [place] # (Auto) 900 (0-900) /uL Eos # (Auto) 100 (0-450) /uL Baso # (Auto) 0 (0-100) /uL PT 11.4 (9.4-12.5) SECONDS INR 1.0 (0.9-1.3) APTT 27 (25.1-36.5) SECONDS D-Dimer 609 H (<500) ng/ml Sodium 136 L (137-145) mmol/L Potassium 4.2 (3.4-5.1) mmol/L Chloride 103 (98-107) mmol/L Carbon Dioxide 22 (22-32) mmol/L BUN 18 H (7-17) mg/dL Creatinine 0.78 (0.52-1.04) mg/dL Estimated GFR > 60 (>60) mL/min BUN/Creatinine Ratio 23.1 H (6-22) Glucose 192 H (80-110) mg/dL Calcium 9.6 (8.4-10.2) mg/dL Magnesium 2.1 (1.6-2.3) mg/dL Total Bilirubin 0.5 (0.2-1.3) mg/dL AST 32 (14-36) IU/L ALT 27 (<35) IU/L Alkaline Phosphatase 59 (38-126) U/L Total Creatine Kinase 142 H (30-135) U/L Troponin I < 0.012 (0.01-0.034) ng/mL NT-Pro-B Natriuret Pep 184 (<450) pg/mL Total Protein 8.2 (6.3-8.2) g/dL Albumin 4.6 (3.5-5.0) g/dL Globulin 3.6 (1.7-4.1) g/dL Albumin/Globulin Ratio 1.3 (1.0-2.8) Lipase 108 (23-300) U/L MDM Narrative Medical decision making narrative: Well-appearing patient with 30 minutes of chest pain yesterday as well as gradually worsening fatigue and dyspnea with exercise. Currently asymptomatic, vital signs stable. Patient reports ongoing palpitations however on strategic account director she is normal sinus rhythm without concerning findings. Laboratory work is reviewed, unremarkable. No evidence of infection, troponin undetectable, BNP within normal limits, chest x-ray negative for acute process. D-dimer mildly elevated, however when adjusted for age it is within acceptable levels for patient and no CT imaging is indicated at this time. cataloging assistant shows no significant events. Results discussed with patient at bedside. No explanation for patient's symptoms. Patient already has scheduled follow up with Cardiology, however she was counseled to see if she could possibly expedite her appointment if possible. ED return precautions discussed at bedside. Patient expressed understanding of the plan and is in agreement at this time. All questions answered at the time of discharge. Discharge Plan Departure Patient Disposition: Home Clinical Impression: Chest pain Instructions: DI for Chest Pain Activity Restrictions/Additional Instructions: Your laboratory work today was normal including your heart enzymes. There is no indication that you have blood clots. On our strategic account director no concerning rhythms were noted while you were in the emergency department. Call your delicatessen slicer to see if you can expedite your follow up appointment, however you can keep your appointment as scheduled. Please return for any new or worsening chest pains or palpitations. Prescriptions: No Action multivitamin Capsule 1 cap PO DAILY Qty: 0 Calcium 600 + D(3) 600 mg calcium- 200 unit Capsule 1 tab PO DAILY Qty: 0 Prilosec OTC 20 MG tablet,delayed release (DR/EC) 20 mg PO QDAY PRN (Reason: Acid Reflux) Qty: 0 meloxicam 7.5 mg tablet See Rx Instructions .ROUTE .COMPLEX Qty: 30 0RF Dose Instruction: TAKE 1 TABLET BY MOUTH DAILY IN THE MORNING WITH A MEAL Rx Instructions: TAKE 1 TABLET BY MOUTH DAILY IN THE MORNING WITH A MEAL pramipexole 0.5 mg tablet 0.75 mg PO BEDTIME Qty: 45 0RF pramipexole 0.5 mg tablet See Rx Instructions .ROUTE .COMPLEX Qty: 135 1RF Dose Instruction: TAKE 1 AND 1/2 TABLETS BY MOUTH AT BEDTIME Rx Instructions: TAKE 1 AND 1/2 TABLETS BY MOUTH AT BEDTIME atorvastatin 40 mg tablet 40 mg PO DAILY Qty: 90 0RF diltiazem HCl 180 mg Capsule,Extended Release 24 Hr 180 mg PO BID aspirin 81 mg Tablet,Delayed Release (Dr/Ec) 81 mg PO BID Qty: 30 0RF tramadol 50 mg tablet 50 mg PO Q6H PRN (Reason: pain) Qty: 15 0RF Referrals: Karthik Vasquez MD [Primary Care Provider] - Stand Alone Forms: Patient Portal/API
[2023-10-12 10:42] LABS: NT-proBNP (BNP-Adult 18+) 184 pg/mL (<450)
[2023-10-12 10:45] LABS: Troponin I < 0.012 ng/mL (0.01-0.034)
[2023-10-12 12:19] LABS: D Dimer 609 ng/ml (<500)
== END 2023-10-12 12:40 | disposition home or self-care (01) ==
PROVIDERS: Emergency Provider Emergency Medicine; Family Provider Family Medicine; PCP Family Medicine
DX: R07.9 Chest pain, unspecified (principal); R00.2 Palpitations
CPT/HCPCS: 36415; 71045; 80053; 82550; 83690; 83735; 83880; 84484; 85025; 85379; 85610; 85730; 93005; 93010; 99284

== ENCOUNTER 2023-11-08 09:45 | Outpatient (RCR) | payer MEDICARE, SELFPAY ==
[2019-05-14 17:02] VITALS: BMI 20.9
--- NOTE | 2023-09-22 16:00 | PT.OPPOC ---
Physical, Occupational & Speech Therapy At [facility] Current Diagnoses Unsteadiness on feet (09/22/23) Other abnormalities of gait and mobility (09/22/23) Dizziness and giddiness (09/22/23) Visit Care Team Role Provider Type Karthik Vasquez MD Family Provider Physician Primary Care Provider Specialty: Family Practice Address: [address] [place] [address] [place], [facility] Email: [email or web address] Moise Mclaughlin MD Attending Provider Physician Referring Provider Specialty: Ear, Nose, Throat Address: [address] [place] [address], [facility] Email: [email or web address] Plan Of Care PT-OP-T Assessment and Plan Start: 09/22/23 17:39 Freq: Status: Active Protocol: Document 09/22/23 15:15 DCW (Rec: 09/23/23 08:39 DCW [id number]) Physical Therapy Assessment Rehab Potential Rehabilitation Potential Good Evaluation Complexity Number of Personal Factors/Comorbidities 1-2 Number of Body Systems Impaired 1-2 Clinical Presentation at Evaluation Stable Impairments Impairments Activity Tolerance,Balance, Functional Activities, Functional Mobility,Gait,Soft Tissue Mobility,Strength Goals Two Impairment Pt scores a 19/30 on FGA, indicating increased falls risk Senior Living Goal (LTG) Pt to increase FGA score by at least 3 points to 22/30 in order to demonstrate decreasing falls risk and improve pt's confidence in walking at [place] LTG Duration 11/23/23 One Impairment Pt does not have an appropriate home exercise program Short Term Goal (STG) Pt to be independent and compliant with an appropriate HEP STG Duration 10/23/23 Assessment Summary Assessment Pt presents with signs and symptoms consistent with referring diagnosis. Multi- factorial decrease in balance noted, including left foot/ ankle weakness, increased falls risk, general age- related deconditioning. This results in decreased confidence and increased fear of falling from pt, especially when out walking in the community on uneven surfaces. Pt should benefit from skilled therapeutic intervention focusing on dynamic balance challenges on varying surfaces ,in addition to working on VOR and vestibular habitation/ adaptation exercises. Physical Therapy Plan Frequency and Duration Frequency of Treatment 2x/Week Plan of Care Start Date 09/22/23 Plan of Care End Date 11/23/23 Therapeutic Interventions Therapeutic Interventions Balance Training,Coordination Training,Gait Training,Home Exercise Program,Manual Therapy,Neuromuscular Re- education,Patient/Caregiver Education,Self-Care/Home Management,Therapeutic Activities,Therapeutic Exercises,Vestibular Rehabilitation Next Visit Focus/Plan Next Note Type Treatment Note Next Visit Plan Balance challenges, head turns , uneven surfaces Plan of Care Dates Plan of Care Start Date 09/22/23 Plan of Care End Date 11/23/23 Electronically Signed by: Rajinder Urrutia, PT 09/23/23 2214 If you are in agreement with this Plan of Care, please return a signed and dated copy. I have reviewed this Plan of Care and certify that the skilled therapy services above are required to meet the patient?s needs. Physician Signature Date Printed Name and Credentials Clinical Instructor Signature Printed Name and Credentials
--- NOTE | 2023-09-22 16:00 | PT.OIE ---
Current Diagnoses Unsteadiness on feet (09/22/23) Other abnormalities of gait and mobility (09/22/23) Dizziness and giddiness (09/22/23) Past Medical History (Last Updated 05/08/19 @ 12:06 by Charisse Swift RN) Acid reflux Back pain (~2014) Breast cancer (~2000) Breast cancer, right (~2000) Bronchitis (~02/2019) Cardiac arrhythmia Chicken pox (~1973) Coronary artery disease (~1998) Easy bruisability Foot pain (~2012) HTN (hypertension) Hyperlipidemia Lower back pain Neuropathy Osteoarthritis (~1995) Osteoporosis (~1994) Restless leg syndrome (~1979) Seasonal allergies (~2010) Shoulder pain (~2014) SVT (supraventricular tachycardia) Past Surgical History (Last Updated 05/08/19 @ 12:06 by Charisse Swift RN) Anesthesia History of lumpectomy (~2000) History of surgery (~1998) Hx of bilateral cataract extraction (~2017) Hx of foot surgery (~06/2018) Hx of heart artery stent (~1998) Visit Care Team Role Provider Type Karthik Vasquez MD Family Provider Physician Primary Care Provider Specialty: Family Practice Address: [address] [place] [address] Email: [email or web address] Moise Mclaughlin MD Attending Provider Physician Referring Provider Specialty: Ear, Nose, Throat Address: [address] [place] [address] Email: [email or web address] Physical Therapy Initial Evaluation PT-OP-A Visit Information Start: 09/22/23 17:39 Freq: Status: Active Protocol: Document 09/22/23 15:15 DCW (Rec: 09/22/23 17:46 DCW [id number]) Out-Patient Physical Therapy Visit Information Visit Information Visit Type Initial Evaluation Visit Start Time 15:15 Visit Stop Time 16:00 Total Visit Minutes 45 Visit Number 1 Number of TECHNICAL PLANNER Visits 0 Evaluation Information Evaluation Date 09/22/23 PT-OP-B Current Condition Start: 09/22/23 17:39 Freq: Status: Active Protocol: Document 09/22/23 15:15 DCW (Rec: 09/22/23 17:46 [facility] [id number]) Current Condition History of Current Condition Onset Date Long-standing history Current Complaints Declining balance, increased fear of falling, left foot slap History of Current Condition Pt is an 83 year old female presenting to skilled therapy with a long-standing history of worsening balance and increasing fear of falling, complicated by 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 Admits she typically wears an AFO for the foot slap, and when out walking in [place] , uses trekking poles, but otherwise does not use any assistive devices regularly. Not comfortable ascending or descending stairs without railing, and going on longer walks just feels like an effort. PT-OP-C Subjective Start: 09/22/23 17:39 Freq: Status: Active Protocol: Document 09/22/23 15:15 DCW (Rec: 09/22/23 17:46 [facility] [id number]) OP-PT Subjective Patient Comments Patient Comments I just feel safer holding on to something for longer walks. Patient Reported Progress Worse PT-OP-D Balance Start: 09/22/23 17:39 Freq: Status: Active Protocol: Document 09/22/23 15:15 DCW (Rec: 09/22/23 17:50 [facility] [id number]) Balance Tests Armenta Balance Test Armenta Balance Test Score 52/56 Armenta Balance Assessment Evaluation Sitting to Standing Ability Independent w/out Hands Unsupported Stance Safely- 2 minutes Sitting Unsupported, Feet on Floor Safely- 2 minutes Standing to Sitting Ability Safely, Minimal Hand Use Transfer Ability Safely, Minimal Hand Use Unsupported Stance- Eyes Closed Safely, 10 seconds Unsupported Stance- Eyes Open Independent, 1 minute Reaching Forward Standing Safely, 5 inches Pick- Up Object From Floor Independent/Safe Look Behind Shoulder - Standing Shifts Weight Well Turning 360 Degrees Turns Bilateral, < 4 secs Unsupported Stance, Alternating Feet on (I)- 8 Steps in 20 secs Stair Unsupported Tandem Stance Achieves Tandem Unilateral Leg Stance Lifts Leg/Unable to Hold Total Score Armenta Total Score (out of 56 points) 52 PT-OP-E Functional Tests Start: 12/28/23 17:39 Freq: Status: Active Protocol: Document 09/22/23 15:15 DCW (Rec: 09/22/23 17:50 DCW [id number]) Functional Tests Dynamic Gait Index (DGI) Score 18/24 DGI Impairment Rating 20 to <40% Impaired (Score 15- 19) Functional Gait Assessment Score 19/30 Functional Gait Assessment Impairment 20 to <40% Impaired (Score 19- Rating 24) PT-OP-M Strength Start: 09/22/23 17:39 Freq: Status: Active Protocol: Document 09/22/23 15:15 DCW (Rec: 09/22/23 17:50 DCW [id number]) Hip Strength Hip Manual Muscle Testing Right Flexion (L2) 5 Normal Extension (S1) 5 Normal Abduction 5 Normal Adduction 5 Normal External Rotation 4 Good Internal Rotation 5 Normal Left Flexion (L2) 5 Normal Extension (S1) 5 Normal Abduction 5 Normal Adduction 5 Normal External Rotation 5 Normal Internal Rotation 4+ Good+ Knee Strength Knee Manual Muscle Testing Right Flexion (S2) 5 Normal Extension (L3) 5 Normal Left Flexion (S2) 5 Normal Extension (L3) 5 Normal Ankle/Foot Strength Ankle and Foot Manual Muscle Testing Right Dorsiflexion (L4) 5 Normal Left Dorsiflexion (L4) 4 Good PT-OP-T Assessment and Plan Start: 09/22/23 17:39 Freq: Status: Active Protocol: Document 09/22/23 15:15 DCW (Rec: 09/23/23 08:39 DCW [id number]) Physical Therapy Assessment Rehab Potential Rehabilitation Potential Good Evaluation Complexity Number of Personal Factors/Comorbidities 1-2 Number of Body Systems Impaired 1-2 Clinical Presentation at Evaluation Stable Impairments Impairments Activity Tolerance,Balance, Functional Activities, Functional Mobility,Gait,Soft Tissue Mobility,Strength Goals Two Impairment Pt scores a 19/30 on FGA, indicating increased falls risk Lead Javascript Engineer Goal (LTG) Pt to increase FGA score by at least 3 points to 22/30 in order to demonstrate decreasing falls risk and improve pt's confidence in walking at [place] LTG Duration 11/23/23 One Impairment Pt does not have an appropriate home exercise program Short Term Goal (STG) Pt to be independent and compliant with an appropriate HEP STG Duration 10/23/23 Assessment Summary Assessment Pt presents with signs and symptoms consistent with referring diagnosis. Multi- factorial decrease in balance noted, including left foot/ ankle weakness, increased falls risk, general age- related deconditioning. This results in decreased confidence and increased fear of falling from pt, especially when out walking in the community on uneven surfaces. Pt should benefit from skilled therapeutic intervention focusing on dynamic balance challenges on varying surfaces ,in addition to working on VOR and vestibular habitation/ adaptation exercises. Physical Therapy Plan Frequency and Duration Frequency of Treatment 2x/Week Plan of Care Start Date 09/22/23 Plan of Care End Date 11/23/23 Therapeutic Interventions Therapeutic Interventions Balance Training,Coordination Training,Gait Training,Home Exercise Program,Manual Therapy,Neuromuscular Re- education,Patient/Caregiver Education,Self-Care/Home Management,Therapeutic Activities,Therapeutic Exercises,Vestibular Rehabilitation Next Visit Focus/Plan Next Note Type Treatment Note Next Visit Plan Balance challenges, head turns , uneven surfaces
--- NOTE | 2023-09-29 11:14 | PT.OTN ---
Current Diagnoses Unsteadiness on feet (09/29/23) Other abnormalities of gait and mobility (09/29/23) Dizziness and giddiness (09/29/23) Physical Therapy Treatment Note PT-OP-A Visit Information Start: 09/22/23 17:39 Freq: Status: Active Protocol: Document 09/29/23 10:33 DCW (Rec: 09/29/23 11:14 DCW [id number]) Out-Patient Physical Therapy Visit Information Visit Information Visit Type Treatment Note Visit Start Time 10:33 Visit Stop Time 11:15 Total Visit Minutes 42 Visit Number 2 Number of SALES FLOOR TEAM LEADER Visits 0 Evaluation Information Evaluation Date 09/22/23 PT-OP-B Current Condition Start: 09/22/23 17:39 Freq: Status: Active Protocol: Document 09/22/23 15:15 DCW (Rec: 09/22/23 17:46 DCW [id number]) Current Condition History of Current Condition Onset Date Long-standing history Current Complaints Declining balance, increased fear of falling, left foot slap History of Current Condition Pt is an 83 year old female presenting to skilled therapy with a long-standing history of worsening balance and increasing fear of falling, complicated by 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 Admits she typically wears an AFO for the foot slap, and when out walking in [place] , uses trekking poles, but otherwise does not use any assistive devices regularly. Not comfortable ascending or descending stairs without railing, and going on longer walks just feels like an effort. PT-OP-C Subjective Start: 09/22/23 17:39 Freq: Status: Active Protocol: Document 09/29/23 10:33 DCW (Rec: 09/29/23 11:14 DCW [id number]) OP-PT Subjective Patient Comments Patient Comments I had a rough morning, I thought I was going to be late , but everything got straightened out. PT-OP-D Balance Start: 09/22/23 17:39 Freq: Status: Active Protocol: Document 09/22/23 15:15 DCW (Rec: 09/22/23 17:50 DCW [id number]) Balance Tests Armenta Balance Test Armenta Balance Test Score 52/56 Armenta Balance Assessment Evaluation Sitting to Standing Ability Independent w/out Hands Unsupported Stance Safely- 2 minutes Sitting Unsupported, Feet on Floor Safely- 2 minutes Standing to Sitting Ability Safely, Minimal Hand Use Transfer Ability Safely, Minimal Hand Use Unsupported Stance- Eyes Closed Safely, 10 seconds Unsupported Stance- Eyes Open Independent, 1 minute Reaching Forward Standing Safely, 5 inches Pick- Up Object From Floor Independent/Safe Look Behind Shoulder - Standing Shifts Weight Well Turning 360 Degrees Turns Bilateral, < 4 secs Unsupported Stance, Alternating Feet on (I)- 8 Steps in 20 secs Stair Unsupported Tandem Stance Achieves Tandem Unilateral Leg Stance Lifts Leg/Unable to Hold Total Score Armenta Total Score (out of 56 points) 52 PT-OP-E Functional Tests Start: 09/22/23 17:39 Freq: Status: Active Protocol: Document 09/22/23 15:15 DCW (Rec: 09/22/23 17:50 DCW [id number]) Functional Tests Dynamic Gait Index (DGI) Score 18/24 DGI Impairment Rating 20 to <40% Impaired (Score 15- 19) Functional Gait Assessment Score 19/30 Functional Gait Assessment Impairment 20 to <40% Impaired (Score 19- Rating 24) PT-OP-M Strength Start: 09/22/23 17:39 Freq: Status: Active Protocol: Document 09/22/23 15:15 DCW (Rec: 09/22/23 17:50 DCW [id number]) Hip Strength Hip Manual Muscle Testing Right Flexion (L2) 5 Normal Extension (S1) 5 Normal Abduction 5 Normal Adduction 5 Normal External Rotation 4 Good Internal Rotation 5 Normal Left Flexion (L2) 5 Normal Extension (S1) 5 Normal Abduction 5 Normal Adduction 5 Normal External Rotation 5 Normal Internal Rotation 4+ Good+ Knee Strength Knee Manual Muscle Testing Right Flexion (S2) 5 Normal Extension (L3) 5 Normal Left Flexion (S2) 5 Normal Extension (L3) 5 Normal Ankle/Foot Strength Ankle and Foot Manual Muscle Testing Right Dorsiflexion (L4) 5 Normal Left Dorsiflexion (L4) 4 Good PT-OP-Q Treatments Start: 09/22/23 17:39 Freq: Status: Active Protocol: Document 09/29/23 10:33 DCW (Rec: 09/29/23 11:14 DCW [id number]) Gym Equipment Shuttle Balance Red Details WBOS, Staggered Therapeutic Exercises Standing Exercises Hip Abduction Standing Exercise Name Hip Abduction Side bilateral Resistance Lv 3 Comments HEP Neuro Re-Education Treatment Balance Activities Dynamic Ambulation Details Hallway Ambulation Comments Horizontal/Vertical head turns (90 bpm) Retro Ambulation Tandem Ambulation Hurdles Details Hurdles/Foam on uneven pad Comments Fwd, Tandem PT-OP-T Assessment and Plan Start: 09/22/23 17:39 Freq: Status: Active Protocol: Document 09/29/23 10:33 DCW (Rec: 09/29/23 11:14 DCW [id number]) Physical Therapy Assessment Impairments Impairments Activity Tolerance,Balance, Functional Activities, Functional Mobility,Gait,Soft Tissue Mobility,Strength Goals Two Impairment Pt scores a 19/30 on FGA, indicating increased falls risk Mcfp Goal (LTG) Pt to increase FGA score by at least 3 points to 22/30 in order to demonstrate decreasing falls risk and improve pt's confidence in walking at [place] LTG Duration 11/23/23 One Impairment Pt does not have an appropriate home exercise program Short Term Goal (STG) Pt to be independent and compliant with an appropriate HEP STG Duration 10/23/23 Assessment Summary Assessment Pt noted all activities were very difficult, but actually had good response to balance challenges. Did note increased left lateral hip fatigue/ weakness, pt given hip abduction HEP. Physical Therapy Plan Frequency and Duration Frequency of Treatment 2x/Week Plan of Care Start Date 09/22/23 Plan of Care End Date 11/23/23 Therapeutic Interventions Therapeutic Interventions Balance Training,Coordination Training,Gait Training,Home Exercise Program,Manual Therapy,Neuromuscular Re- education,Patient/Caregiver Education,Self-Care/Home Management,Therapeutic Activities,Therapeutic Exercises,Vestibular Rehabilitation Next Visit Focus/Plan Next Note Type Treatment Note Next Visit Plan Balance challenges, head turns , uneven surfaces
--- NOTE | 2023-10-05 12:02 | PT.OTN ---
Current Diagnoses Unsteadiness on feet (10/05/23) Other abnormalities of gait and mobility (10/05/23) Dizziness and giddiness (10/05/23) Physical Therapy Treatment Note PT-OP-A Visit Information Start: 09/22/23 17:39 Freq: Status: Active Protocol: Document 10/05/23 11:17 DCW (Rec: 10/05/23 12:01 DCW [id number]) Out-Patient Physical Therapy Visit Information Visit Information Visit Type Treatment Note Visit Start Time 11:17 Visit Stop Time 12:00 Total Visit Minutes 43 Visit Number 3 Number of MENTALLY IMPAIRED TEACHER Visits 0 Evaluation Information Evaluation Date 09/22/23 PT-OP-B Current Condition Start: 09/22/23 17:39 Freq: Status: Active Protocol: Document 09/22/23 15:15 DCW (Rec: 09/22/23 17:46 DCW [id number]) Current Condition History of Current Condition Onset Date Long-standing history Current Complaints Declining balance, increased fear of falling, left foot slap History of Current Condition Pt is an 83 year old female presenting to skilled therapy with a long-standing history of worsening balance and increasing fear of falling, complicated by 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 Admits she typically wears an AFO for the foot slap, and when out walking in [place] , uses trekking poles, but otherwise does not use any assistive devices regularly. Not comfortable ascending or descending stairs without railing, and going on longer walks just feels like an effort. PT-OP-C Subjective Start: 09/22/23 17:39 Freq: Status: Active Protocol: Document 10/05/23 11:17 DCW (Rec: 10/05/23 12:02 DCW [id number]) OP-PT Subjective Patient Comments Patient Comments Pt feeling well today, has been doing well with HEP. PT-OP-D Balance Start: 09/22/23 17:39 Freq: Status: Active Protocol: Document 09/22/23 15:15 DCW (Rec: 09/22/23 17:50 DCW [id number]) Balance Tests Armenta Balance Test Armenta Balance Test Score 52/56 Armenta Balance Assessment Evaluation Sitting to Standing Ability Independent w/out Hands Unsupported Stance Safely- 2 minutes Sitting Unsupported, Feet on Floor Safely- 2 minutes Standing to Sitting Ability Safely, Minimal Hand Use Transfer Ability Safely, Minimal Hand Use Unsupported Stance- Eyes Closed Safely, 10 seconds Unsupported Stance- Eyes Open Independent, 1 minute Reaching Forward Standing Safely, 5 inches Pick- Up Object From Floor Independent/Safe Look Behind Shoulder - Standing Shifts Weight Well Turning 360 Degrees Turns Bilateral, < 4 secs Unsupported Stance, Alternating Feet on (I)- 8 Steps in 20 secs Stair Unsupported Tandem Stance Achieves Tandem Unilateral Leg Stance Lifts Leg/Unable to Hold Total Score Armenta Total Score (out of 56 points) 52 PT-OP-E Functional Tests Start: 09/22/23 17:39 Freq: Status: Active Protocol: Document 09/22/23 15:15 DCW (Rec: 09/22/23 17:50 DCW [id number]) Functional Tests Dynamic Gait Index (DGI) Score 18/24 DGI Impairment Rating 20 to <40% Impaired (Score 15- 19) Functional Gait Assessment Score 19/30 Functional Gait Assessment Impairment 20 to <40% Impaired (Score 19- Rating 24) PT-OP-M Strength Start: 09/22/23 17:39 Freq: Status: Active Protocol: Document 09/22/23 15:15 DCW (Rec: 09/22/23 17:50 DCW [id number]) Hip Strength Hip Manual Muscle Testing Right Flexion (L2) 5 Normal Extension (S1) 5 Normal Abduction 5 Normal Adduction 5 Normal External Rotation 4 Good Internal Rotation 5 Normal Left Flexion (L2) 5 Normal Extension (S1) 5 Normal Abduction 5 Normal Adduction 5 Normal External Rotation 5 Normal Internal Rotation 4+ Good+ Knee Strength Knee Manual Muscle Testing Right Flexion (S2) 5 Normal Extension (L3) 5 Normal Left Flexion (S2) 5 Normal Extension (L3) 5 Normal Ankle/Foot Strength Ankle and Foot Manual Muscle Testing Right Dorsiflexion (L4) 5 Normal Left Dorsiflexion (L4) 4 Good PT-OP-Q Treatments Start: 09/22/23 17:39 Freq: Status: Active Protocol: Document 10/05/23 11:17 DCW (Rec: 10/05/23 12:01 DCW [id number]) Gym Equipment Shuttle Balance Red Details WBOS, Staggered Therapeutic Exercises Standing Exercises Heel Raises Standing Exercise Name SL Heel raises Neuro Re-Education Treatment Balance Activities BOSU Stance Details DL Stance Surface Blue BOSU SLS Details SLS Equipment // bars Dynamic Ambulation Details Hallway Ambulation Comments Horizontal/Vertical head turns (90 bpm) Retro Ambulation Tandem Ambulation Hurdles Details Hurdles on uneven pad Comments Fwd, Tandem PT-OP-T Assessment and Plan Start: 09/22/23 17:39 Freq: Status: Active Protocol: Document 10/05/23 11:17 DCW (Rec: 10/05/23 12:01 DCW [id number]) Physical Therapy Assessment Impairments Impairments Activity Tolerance,Balance, Functional Activities, Functional Mobility,Gait,Soft Tissue Mobility,Strength Goals Two Impairment Pt scores a 19/30 on FGA, indicating increased falls risk Health Promotion Coordinator Goal (LTG) Pt to increase FGA score by at least 3 points to 22/30 in order to demonstrate decreasing falls risk and improve pt's confidence in walking at [place] LTG Duration 11/23/23 One Impairment Pt does not have an appropriate home exercise program Short Term Goal (STG) Pt to be independent and compliant with an appropriate HEP STG Duration 10/23/23 Assessment Summary Assessment Pt noted muscle fatigue through session, but was able to fully participate with short rest breaks. Pt struggled more with eyes- closed activities, did show fairly good stability with BOSU stance. Physical Therapy Plan Frequency and Duration Frequency of Treatment 2x/Week Plan of Care Start Date 09/22/23 Plan of Care End Date 11/23/23 Therapeutic Interventions Therapeutic Interventions Balance Training,Coordination Training,Gait Training,Home Exercise Program,Manual Therapy,Neuromuscular Re- education,Patient/Caregiver Education,Self-Care/Home Management,Therapeutic Activities,Therapeutic Exercises,Vestibular Rehabilitation Next Visit Focus/Plan Next Note Type Treatment Note Next Visit Plan Balance challenges, head turns , uneven surfaces
--- NOTE | 2023-10-07 10:47 | PT.OTN ---
Current Diagnoses Unsteadiness on feet (10/07/23) Other abnormalities of gait and mobility (10/07/23) Dizziness and giddiness (10/07/23) Physical Therapy Treatment Note PT-OP-A Visit Information Start: 09/22/23 17:39 Freq: Status: Active Protocol: Document 10/07/23 09:48 NBM (Rec: 10/07/23 10:46 [facility] [id number]) Out-Patient Physical Therapy Visit Information Visit Information Visit Type Treatment Note Visit Start Time 09:49 Visit Stop Time 10:35 Total Visit Minutes 46 Visit Number 4 Number of STUNTMAN Visits 1 PT-OP-B Current Condition Start: 09/22/23 17:39 Freq: Status: Active Protocol: Document 09/22/23 15:15 DCW (Rec: 09/22/23 17:46 DCW [id number]) Current Condition History of Current Condition Onset Date Long-standing history Current Complaints Declining balance, increased fear of falling, left foot slap History of Current Condition Pt is an 83 year old female presenting to skilled therapy with a long-standing history of worsening balance and increasing fear of falling, complicated by 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 Admits she typically wears an AFO for the foot slap, and when out walking in [place] , uses trekking poles, but otherwise does not use any assistive devices regularly. Not comfortable ascending or descending stairs without railing, and going on longer walks just feels like an effort. PT-OP-C Subjective Start: 09/22/23 17:39 Freq: Status: Active Protocol: Document 10/07/23 09:48 NBM (Rec: 10/07/23 10:46 [facility] [id number]) OP-PT Subjective Patient Comments Patient Comments Michelle reports no new changes. She has been doing her ex's. Her arthritis is worse in this cold weather. PT-OP-D Balance Start: 09/22/23 17:39 Freq: Status: Active Protocol: Document 09/22/23 15:15 DCW (Rec: 09/22/23 17:50 DCW [id number]) Balance Tests Armenta Balance Test Armenta Balance Test Score 52/56 Armenta Balance Assessment Evaluation Sitting to Standing Ability Independent w/out Hands Unsupported Stance Safely- 2 minutes Sitting Unsupported, Feet on Floor Safely- 2 minutes Standing to Sitting Ability Safely, Minimal Hand Use Transfer Ability Safely, Minimal Hand Use Unsupported Stance- Eyes Closed Safely, 10 seconds Unsupported Stance- Eyes Open Independent, 1 minute Reaching Forward Standing Safely, 5 inches Pick- Up Object From Floor Independent/Safe Look Behind Shoulder - Standing Shifts Weight Well Turning 360 Degrees Turns Bilateral, < 4 secs Unsupported Stance, Alternating Feet on (I)- 8 Steps in 20 secs Stair Unsupported Tandem Stance Achieves Tandem Unilateral Leg Stance Lifts Leg/Unable to Hold Total Score Armenta Total Score (out of 56 points) 52 PT-OP-E Functional Tests Start: 09/22/23 17:39 Freq: Status: Active Protocol: Document 09/22/23 15:15 DCW (Rec: 09/22/23 17:50 DCW [id number]) Functional Tests Dynamic Gait Index (DGI) Score 18/24 DGI Impairment Rating 20 to <40% Impaired (Score 15- 19) Functional Gait Assessment Score 19/30 Functional Gait Assessment Impairment 20 to <40% Impaired (Score 19- Rating 24) PT-OP-M Strength Start: 09/22/23 17:39 Freq: Status: Active Protocol: Document 09/22/23 15:15 DCW (Rec: 09/22/23 17:50 DCW [id number]) Hip Strength Hip Manual Muscle Testing Right Flexion (L2) 5 Normal Extension (S1) 5 Normal Abduction 5 Normal Adduction 5 Normal External Rotation 4 Good Internal Rotation 5 Normal Left Flexion (L2) 5 Normal Extension (S1) 5 Normal Abduction 5 Normal Adduction 5 Normal External Rotation 5 Normal Internal Rotation 4+ Good+ Knee Strength Knee Manual Muscle Testing Right Flexion (S2) 5 Normal Extension (L3) 5 Normal Left Flexion (S2) 5 Normal Extension (L3) 5 Normal Ankle/Foot Strength Ankle and Foot Manual Muscle Testing Right Dorsiflexion (L4) 5 Normal Left Dorsiflexion (L4) 4 Good PT-OP-Q Treatments Start: 09/22/23 17:39 Freq: Status: Active Protocol: Document 10/07/23 09:48 NBM (Rec: 10/07/23 10:46 NBM [id number]) Therapeutic Exercises Standing Exercises marching Standing Exercise Name 1. standing marching -added to HEP 2. banded marching Side bilateral Resistance w and wo Lvl 3 band Equipment Used handrail Reps/Minutes x10 ea Comments standing marching added to HEP Heel Raises Standing Exercise Name DL>SL heel raises Side bilateral Equipment Used handrail Reps/Minutes x10 ea Comments cues for less a/p shifting Hip Abduction Standing Exercise Name Hip Abduction - HEP review Side bilateral Resistance Lv 3 Equipment Used handrail Reps/Minutes 2x10 ea Comments cues for upright posture, eccentric control Neuro Re-Education Treatment Balance Activities tandem Details fwd/bwd ambulation Surface firm Equipment // bars, mirror Reps/Duration 10ft x2 Comments balance improves w/ visual feedback BOSU Stance Details DL Stance Surface Blue BOSU Equipment // bars 38 Comments hip width: EO/EC, EO w/ head turns. Pt most challenged w/ EO needing modA for balance Hurdles Details Hurdles on firm and uneven pad Equipment // bars Comments Fwd, side Self-Care/Home Management Treatment Education Patient Education Home Exercise Program,Safety Other Education HEP review: standing hip abduction: decrease reps from 40 ea to 2x10 ea with focus on slower pacing/eccentric control and upright posture. Mindful of max hip flexion with walking to improve foot clearance - standing marching added to HEP - HO given. PT-OP-T Assessment and Plan Start: 09/22/23 17:39 Freq: Status: Active Protocol: Document 10/07/23 09:48 NBM (Rec: 10/07/23 10:46 NBM [id number]) Physical Therapy Assessment Goals Two Impairment Pt scores a 19/30 on FGA, indicating increased falls risk Assisted Goal (LTG) Pt to increase FGA score by at least 3 points to 22/30 in order to demonstrate decreasing falls risk and improve pt's confidence in walking at [place] LTG Duration 11/23/23 One Impairment Pt does not have an appropriate home exercise program Short Term Goal (STG) Pt to be independent and compliant with an appropriate HEP STG Duration 10/23/23 Assessment Summary Assessment Pt most challenged w/ EO with WBOS on BOSU dome needing modA for balance recovery with LOB anterior and Right. Tandem ambulation improves with visual feedback from mirror and cueing for toes fwd. HEP review of standing hip abduction: pt to decrease reps from 40 ea to 2x10 ea with focus on slower pacing/ eccentric control and upright posture. Pt encouraged to be mindful of max hip flexion with walking to improve foot clearance for safety - standing marching added to HEP - HO given. Physical Therapy Plan Frequency and Duration Frequency of Treatment 2x/Week Plan of Care Start Date 09/22/23 Plan of Care End Date 11/23/23 Therapeutic Interventions Therapeutic Interventions Balance Training,Coordination Training,Gait Training,Home Exercise Program,Manual Therapy,Neuromuscular Re- education,Patient/Caregiver Education,Self-Care/Home Management,Therapeutic Activities,Therapeutic Exercises,Vestibular Rehabilitation Next Visit Focus/Plan Next Note Type Treatment Note Next Visit Plan Balance challenges, head turns , uneven surfaces
--- NOTE | 2023-10-12 11:35 | PT-OP ANOTE ---
Pt called to cancel today's appt, having heart flutters. DELICATESSEN MANAGER called, spoke with , pt called physician and told take her to ER and did, she was feeling nausea and heart pain, awaiting call from ER how she is doing. DELICATESSEN MANAGER stated to good choice and let us know if there is anything PT needs to be aware of for future PT appt when feeling ok if suggesting continue PT at this time for safety.
--- NOTE | 2023-10-19 10:35 | PT.OTN ---
Current Diagnoses Unsteadiness on feet (10/19/23) Other abnormalities of gait and mobility (10/19/23) Dizziness and giddiness (10/19/23) Physical Therapy Treatment Note PT-OP-A Visit Information Start: 09/22/23 17:39 Freq: Status: Active Protocol: Document 10/19/23 09:54 SP (Rec: 10/19/23 10:41 SP [id number]) Out-Patient Physical Therapy Visit Information Visit Information Visit Type Treatment Note Visit Start Time 09:54 Visit Stop Time 10:35 Visit Number 5 Number of PRIVATE INVESTIGATOR Visits 2 PT-OP-B Current Condition Start: 09/22/23 17:39 Freq: Status: Active Protocol: Document 09/22/23 15:15 DCW (Rec: 09/22/23 17:46 DCW [id number]) Current Condition History of Current Condition Onset Date Long-standing history Current Complaints Declining balance, increased fear of falling, left foot slap History of Current Condition Pt is an 83 year old female presenting to skilled therapy with a long-standing history of worsening balance and increasing fear of falling, complicated by 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 Admits she typically wears an AFO for the foot slap, and when out walking in [place] , uses trekking poles, but otherwise does not use any assistive devices regularly. Not comfortable ascending or descending stairs without railing, and going on longer walks just feels like an effort. PT-OP-C Subjective Start: 09/22/23 17:39 Freq: Status: Active Protocol: Document 10/19/23 09:54 SP (Rec: 10/19/23 10:41 SP [id number]) OP-PT Subjective Patient Comments Patient Comments Pt reports no pain, compliant with HEP, to early to tell how affecting daily life. PT-OP-D Balance Start: 09/22/23 17:39 Freq: Status: Active Protocol: Document 09/22/23 15:15 DCW (Rec: 09/22/23 17:50 DCW [id number]) Balance Tests Armenta Balance Test Armenta Balance Test Score 52/56 Armenta Balance Assessment Evaluation Sitting to Standing Ability Independent w/out Hands Unsupported Stance Safely- 2 minutes Sitting Unsupported, Feet on Floor Safely- 2 minutes Standing to Sitting Ability Safely, Minimal Hand Use Transfer Ability Safely, Minimal Hand Use Unsupported Stance- Eyes Closed Safely, 10 seconds Unsupported Stance- Eyes Open Independent, 1 minute Reaching Forward Standing Safely, 5 inches Pick- Up Object From Floor Independent/Safe Look Behind Shoulder - Standing Shifts Weight Well Turning 360 Degrees Turns Bilateral, < 4 secs Unsupported Stance, Alternating Feet on (I)- 8 Steps in 20 secs Stair Unsupported Tandem Stance Achieves Tandem Unilateral Leg Stance Lifts Leg/Unable to Hold Total Score Armenta Total Score (out of 56 points) 52 PT-OP-E Functional Tests Start: 09/22/23 17:39 Freq: Status: Active Protocol: Document 09/22/23 15:15 DCW (Rec: 09/22/23 17:50 DCW [id number]) Functional Tests Dynamic Gait Index (DGI) Score 18/24 DGI Impairment Rating 20 to <40% Impaired (Score 15- 19) Functional Gait Assessment Score 19/30 Functional Gait Assessment Impairment 20 to <40% Impaired (Score 19- Rating 24) PT-OP-M Strength Start: 09/22/23 17:39 Freq: Status: Active Protocol: Document 09/22/23 15:15 DCW (Rec: 09/22/23 17:50 DCW [id number]) Hip Strength Hip Manual Muscle Testing Right Flexion (L2) 5 Normal Extension (S1) 5 Normal Abduction 5 Normal Adduction 5 Normal External Rotation 4 Good Internal Rotation 5 Normal Left Flexion (L2) 5 Normal Extension (S1) 5 Normal Abduction 5 Normal Adduction 5 Normal External Rotation 5 Normal Internal Rotation 4+ Good+ Knee Strength Knee Manual Muscle Testing Right Flexion (S2) 5 Normal Extension (L3) 5 Normal Left Flexion (S2) 5 Normal Extension (L3) 5 Normal Ankle/Foot Strength Ankle and Foot Manual Muscle Testing Right Dorsiflexion (L4) 5 Normal Left Dorsiflexion (L4) 4 Good PT-OP-Q Treatments Start: 09/22/23 17:39 Freq: Status: Active Protocol: Document 10/19/23 09:54 SP (Rec: 10/19/23 10:41 SP [id number]) Gym Equipment Shuttle Balance Red Details WBOS, Staggered Comments HTs Therapeutic Exercises Standing Exercises side stepping Standing Exercise Name trialed in PT Resistance L3 at forefoot Equipment Used rail PRN Reps/Minutes 15 ft 1 lap Comments cued trail LLE clearance, eccentric control marching Standing Exercise Name banded marching Side bilateral Resistance Lvl 3 band at forefoot Equipment Used near PRN contact handrail Reps/Minutes x10 ea Comments little trunk sway but no LOB Heel Raises Standing Exercise Name DL x10 warm up, SL heel raises Side bilateral Equipment Used no HR DL, 1 HR SL 50% R and LLE Reps/Minutes x10 ea Comments cue center trunk, core/ postural alignment Hip Abduction Standing Exercise Name Hip Abduction - HEP review Side bilateral Resistance Lv 3 at mid cramer Equipment Used handrail Reps/Minutes 2x10 ea Comments cues for upright posture, eccentric control Neuro Re-Education Treatment Balance Activities Hurdles Details 1. oval/6 hurdles 2. uneven hill 3 hurdles/4 oval foam fwd 4. side hurdles Equipment // bars> open space on mat Comments Fwd, side PT-OP-T Assessment and Plan Start: 09/22/23 17:39 Freq: Status: Active Protocol: Document 10/19/23 09:54 SP (Rec: 10/19/23 10:41 SP [id number]) Physical Therapy Assessment Goals Two Impairment Pt scores a 19/30 on FGA, indicating increased falls risk Brush Sander Goal (LTG) Pt to increase FGA score by at least 3 points to 22/30 in order to demonstrate decreasing falls risk and improve pt's confidence in walking at [place] LTG Duration 11/23/23 One Impairment Pt does not have an appropriate home exercise program Short Term Goal (STG) Pt to be independent and compliant with an appropriate HEP STG Duration 10/23/23 Assessment Summary Assessment Pt reported good hip abd and balance effort during resisted ther ex. She reports challenge during balance activities, cues for core engagement and elongated postural alignment improved stability corrections and CG- 10%A as needed for trunk sway recovery when needed while progressing into ability to apply to uneven incline/ decline to support return to trail hike wishes to do again. Physical Therapy Plan Frequency and Duration Frequency of Treatment 2x/Week Plan of Care Start Date 09/22/23 Plan of Care End Date 11/23/23 Therapeutic Interventions Therapeutic Interventions Balance Training,Coordination Training,Gait Training,Home Exercise Program,Manual Therapy,Neuromuscular Re- education,Patient/Caregiver Education,Self-Care/Home Management,Therapeutic Activities,Therapeutic Exercises,Vestibular Rehabilitation Next Visit Focus/Plan Next Note Type Treatment Note Next Visit Plan Assess response to ther ex and balance uneven surface last tx. POC: Balance challenges, head turns, uneven surfaces
--- NOTE | 2023-10-21 10:33 | PT.OTN ---
Current Diagnoses Unsteadiness on feet (10/21/23) Other abnormalities of gait and mobility (10/21/23) Dizziness and giddiness (10/21/23) Physical Therapy Treatment Note PT-OP-A Visit Information Start: 09/22/23 17:39 Freq: Status: Active Protocol: Document 10/21/23 09:53 SP (Rec: 10/21/23 10:39 SP [id number]) Out-Patient Physical Therapy Visit Information Visit Information Visit Type Treatment Note Visit Start Time 09:53 Visit Stop Time 10:33 Visit Number 6 Number of HOOP FLARING MACHINE OPERATOR HELPER Visits 3 PT-OP-B Current Condition Start: 09/22/23 17:39 Freq: Status: Active Protocol: Document 09/22/23 15:15 DCW (Rec: 09/22/23 17:46 DCW [id number]) Current Condition History of Current Condition Onset Date Long-standing history Current Complaints Declining balance, increased fear of falling, left foot slap History of Current Condition Pt is an 83 year old female presenting to skilled therapy with a long-standing history of worsening balance and increasing fear of falling, complicated by 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 Admits she typically wears an AFO for the foot slap, and when out walking in [place] , uses trekking poles, but otherwise does not use any assistive devices regularly. Not comfortable ascending or descending stairs without railing, and going on longer walks just feels like an effort. PT-OP-C Subjective Start: 09/22/23 17:39 Freq: Status: Active Protocol: Document 10/21/23 09:53 SP (Rec: 10/21/23 10:39 SP [id number]) OP-PT Subjective Patient Comments Patient Comments Pt reported little sore after last tx but felt the balance challenge was good. PT-OP-D Balance Start: 09/22/23 17:39 Freq: Status: Active Protocol: Document 09/22/23 15:15 DCW (Rec: 09/22/23 17:50 DCW [id number]) Balance Tests Armenta Balance Test Armenta Balance Test Score 52/56 Armenta Balance Assessment Evaluation Sitting to Standing Ability Independent w/out Hands Unsupported Stance Safely- 2 minutes Sitting Unsupported, Feet on Floor Safely- 2 minutes Standing to Sitting Ability Safely, Minimal Hand Use Transfer Ability Safely, Minimal Hand Use Unsupported Stance- Eyes Closed Safely, 10 seconds Unsupported Stance- Eyes Open Independent, 1 minute Reaching Forward Standing Safely, 5 inches Pick- Up Object From Floor Independent/Safe Look Behind Shoulder - Standing Shifts Weight Well Turning 360 Degrees Turns Bilateral, < 4 secs Unsupported Stance, Alternating Feet on (I)- 8 Steps in 20 secs Stair Unsupported Tandem Stance Achieves Tandem Unilateral Leg Stance Lifts Leg/Unable to Hold Total Score Armenta Total Score (out of 56 points) 52 PT-OP-E Functional Tests Start: 09/22/23 17:39 Freq: Status: Active Protocol: Document 09/22/23 15:15 DCW (Rec: 09/22/23 17:50 DCW [id number]) Functional Tests Dynamic Gait Index (DGI) Score 18/24 DGI Impairment Rating 20 to <40% Impaired (Score 15- 19) Functional Gait Assessment Score 19/30 Functional Gait Assessment Impairment 20 to <40% Impaired (Score 19- Rating 24) PT-OP-M Strength Start: 09/22/23 17:39 Freq: Status: Active Protocol: Document 09/22/23 15:15 DCW (Rec: 09/22/23 17:50 DCW [id number]) Hip Strength Hip Manual Muscle Testing Right Flexion (L2) 5 Normal Extension (S1) 5 Normal Abduction 5 Normal Adduction 5 Normal External Rotation 4 Good Internal Rotation 5 Normal Left Flexion (L2) 5 Normal Extension (S1) 5 Normal Abduction 5 Normal Adduction 5 Normal External Rotation 5 Normal Internal Rotation 4+ Good+ Knee Strength Knee Manual Muscle Testing Right Flexion (S2) 5 Normal Extension (L3) 5 Normal Left Flexion (S2) 5 Normal Extension (L3) 5 Normal Ankle/Foot Strength Ankle and Foot Manual Muscle Testing Right Dorsiflexion (L4) 5 Normal Left Dorsiflexion (L4) 4 Good PT-OP-Q Treatments Start: 09/22/23 17:39 Freq: Status: Active Protocol: Document 10/21/23 09:53 SP (Rec: 10/21/23 10:39 SP [id number]) Gym Equipment Shuttle Recovery unilateral squat Details occ cues knee alignment Resistance 25# dark navy Reps/Time 15 bilateral squat Details occ cues knee alignment Resistance 50# dark navy Reps/Time 15 Shuttle Balance Red Details WBOS, Staggered fwd, Lateral Reps/Duration 4min Comments wt shift stationary HTs Therapeutic Exercises Standing Exercises step ups Standing Exercise Name 1. 6 step 4# leg wt 2. 8 step AROM Equipment Used no HR needed Reps/Minutes 10 reps each LE, each height Comments cued elongate/center trunk for stab, slower pacing 8 stab/ ft clearance Neuro Re-Education Treatment Balance Activities tandem stance BUE shld ext Details added to HEP - declined HO Equipment TB #3 Reps/Duration 10 reps each ft position Comments semi tandem easy> tandem -little challenge stab but improved self scap/core fac and self balance corrections. BOSU Stance Details DL Stance Surface Blue BOSU Equipment // bars 38 Comments hip width: EC, EO w/ head turns. Pt most challenged w/ EO needing modA for balance Dynamic Ambulation Details Hallway Ambulation Equipment near rail hallway Comments Horizontal/Vertical head turns (90 bpm) Retro Ambulation Tandem Ambulation-challenging Cues scap stab/core fac center self PT-OP-T Assessment and Plan Start: 09/22/23 17:39 Freq: Status: Active Protocol: Document 10/21/23 09:53 SP (Rec: 10/21/23 10:39 SP [id number]) Physical Therapy Assessment Goals Two Impairment Pt scores a 19/30 on FGA, indicating increased falls risk Liquid Chlorine Operator Goal (LTG) Pt to increase FGA score by at least 3 points to 22/30 in order to demonstrate decreasing falls risk and improve pt's confidence in walking at [place] LTG Duration 11/23/23 One Impairment Pt does not have an appropriate home exercise program Short Term Goal (STG) Pt to be independent and compliant with an appropriate HEP STG Duration 10/23/23 Assessment Summary Assessment Tx focused on increase LE strengthening of which pt tolerated shuttle recovery and added resistance to step ups. She was most challenged EC balance activities and moderate dynamic head turns able to maintain 90bpm as distance/reps progressed improved core/hip abd/scap stabilization fac and postural corrections post ther ex and given cues to support carryover uneven surface community gait as trail wants to return to doing. Physical Therapy Plan Frequency and Duration Frequency of Treatment 2x/Week Plan of Care Start Date 09/22/23 Plan of Care End Date 11/23/23 Therapeutic Interventions Therapeutic Interventions Balance Training,Coordination Training,Gait Training,Home Exercise Program,Manual Therapy,Neuromuscular Re- education,Patient/Caregiver Education,Self-Care/Home Management,Therapeutic Activities,Therapeutic Exercises,Vestibular Rehabilitation Next Visit Focus/Plan Next Note Type Treatment Note Next Visit Plan Assess response to resisted ther ex and balance uneven surface last tx. POC: Balance challenges, head turns, uneven surfaces
--- NOTE | 2023-10-26 10:28 | PT.OTN ---
Current Diagnoses Unsteadiness on feet (10/26/23) Other abnormalities of gait and mobility (10/26/23) Dizziness and giddiness (10/26/23) Physical Therapy Treatment Note PT-OP-A Visit Information Start: 09/22/23 17:39 Freq: Status: Active Protocol: Document 10/26/23 09:49 DCW (Rec: 10/26/23 10:28 DCW [id number]) Out-Patient Physical Therapy Visit Information Visit Information Visit Type Treatment Note Visit Start Time 09:49 Visit Stop Time 10:30 Visit Number 7 Number of NEEDLE BOARD REPAIRER Visits 0 PT-OP-B Current Condition Start: 09/22/23 17:39 Freq: Status: Active Protocol: Document 09/22/23 15:15 DCW (Rec: 09/22/23 17:46 DCW [id number]) Current Condition History of Current Condition Onset Date Long-standing history Current Complaints Declining balance, increased fear of falling, left foot slap History of Current Condition Pt is an 83 year old female presenting to skilled therapy with a long-standing history of worsening balance and increasing fear of falling, complicated by 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 Admits she typically wears an AFO for the foot slap, and when out walking in [place] , uses trekking poles, but otherwise does not use any assistive devices regularly. Not comfortable ascending or descending stairs without railing, and going on longer walks just feels like an effort. PT-OP-C Subjective Start: 09/22/23 17:39 Freq: Status: Active Protocol: Document 10/26/23 09:49 DCW (Rec: 10/26/23 10:28 DCW [id number]) OP-PT Subjective Patient Comments Patient Comments I think it's getting better. I feel steadier standing on one foot doing yoga. I'm still having trouble walking heel- toe. PT-OP-D Balance Start: 09/22/23 17:39 Freq: Status: Active Protocol: Document 09/22/23 15:15 DCW (Rec: 09/22/23 17:50 DCW [id number]) Balance Tests Armenta Balance Test Armenta Balance Test Score 52/56 Armenta Balance Assessment Evaluation Sitting to Standing Ability Independent w/out Hands Unsupported Stance Safely- 2 minutes Sitting Unsupported, Feet on Floor Safely- 2 minutes Standing to Sitting Ability Safely, Minimal Hand Use Transfer Ability Safely, Minimal Hand Use Unsupported Stance- Eyes Closed Safely, 10 seconds Unsupported Stance- Eyes Open Independent, 1 minute Reaching Forward Standing Safely, 5 inches Pick- Up Object From Floor Independent/Safe Look Behind Shoulder - Standing Shifts Weight Well Turning 360 Degrees Turns Bilateral, < 4 secs Unsupported Stance, Alternating Feet on (I)- 8 Steps in 20 secs Stair Unsupported Tandem Stance Achieves Tandem Unilateral Leg Stance Lifts Leg/Unable to Hold Total Score Armenta Total Score (out of 56 points) 52 PT-OP-E Functional Tests Start: 09/22/23 17:39 Freq: Status: Active Protocol: Document 09/22/23 15:15 DCW (Rec: 09/22/23 17:50 DCW [id number]) Functional Tests Dynamic Gait Index (DGI) Score 18/24 DGI Impairment Rating 20 to <40% Impaired (Score 15- 19) Functional Gait Assessment Score 19/30 Functional Gait Assessment Impairment 20 to <40% Impaired (Score 19- Rating 24) PT-OP-M Strength Start: 09/22/23 17:39 Freq: Status: Active Protocol: Document 09/22/23 15:15 DCW (Rec: 09/22/23 17:50 DCW [id number]) Hip Strength Hip Manual Muscle Testing Right Flexion (L2) 5 Normal Extension (S1) 5 Normal Abduction 5 Normal Adduction 5 Normal External Rotation 4 Good Internal Rotation 5 Normal Left Flexion (L2) 5 Normal Extension (S1) 5 Normal Abduction 5 Normal Adduction 5 Normal External Rotation 5 Normal Internal Rotation 4+ Good+ Knee Strength Knee Manual Muscle Testing Right Flexion (S2) 5 Normal Extension (L3) 5 Normal Left Flexion (S2) 5 Normal Extension (L3) 5 Normal Ankle/Foot Strength Ankle and Foot Manual Muscle Testing Right Dorsiflexion (L4) 5 Normal Left Dorsiflexion (L4) 4 Good PT-OP-Q Treatments Start: 09/22/23 17:39 Freq: Status: Active Protocol: Document 10/26/23 09:49 DCW (Rec: 10/26/23 10:28 DCW [id number]) Gym Equipment Shuttle Balance Red Details WBOS, Staggered fwd, Lateral Therapeutic Exercises Standing Exercises Hamstring Curls Standing Exercise Name HS Curls Side bilateral Resistance 5# marching Standing Exercise Name Toe-taps Side bilateral Resistance 5# Equipment Used 6 step Hip Abduction Standing Exercise Name Hip Abduction, Extension Side bilateral Resistance Green Equipment Used handrail Reps/Minutes 2x10 ea Neuro Re-Education Treatment Balance Activities tandem Details Tandem Stance Equipment // bars SLS Details SLS Equipment // bars Dynamic Ambulation Details Hallway Ambulation Equipment near rail hallway Comments Horizontal/Vertical head turns (90 bpm) Retro Ambulation Tandem Ambulation PT-OP-T Assessment and Plan Start: 09/22/23 17:39 Freq: Status: Active Protocol: Document 10/26/23 09:49 DCW (Rec: 10/26/23 10:28 DCW [id number]) Physical Therapy Assessment Impairments Impairments Activity Tolerance,Balance, Functional Activities, Functional Mobility,Gait,Soft Tissue Mobility,Strength Goals Two Impairment Pt scores a 19/30 on FGA, indicating increased falls risk [employer] Workflow Consultant Goal (LTG) Pt to increase FGA score by at least 3 points to 22/30 in order to demonstrate decreasing falls risk and improve pt's confidence in walking at [place] LTG Duration 11/23/23 One Impairment Pt does not have an appropriate home exercise program Short Term Goal (STG) Pt to be independent and compliant with an appropriate HEP STG Duration 10/23/23 Assessment Summary Assessment Pt fatigued throughout session , but put in very good effort overall, minimal rest breaks required. Showing good response to treatment. Continues to be challenged in tandem and SLS. Physical Therapy Plan Frequency and Duration Frequency of Treatment 2x/Week Plan of Care Start Date 09/22/23 Plan of Care End Date 11/23/23 Therapeutic Interventions Therapeutic Interventions Balance Training,Coordination Training,Gait Training,Home Exercise Program,Manual Therapy,Neuromuscular Re- education,Patient/Caregiver Education,Self-Care/Home Management,Therapeutic Activities,Therapeutic Exercises,Vestibular Rehabilitation Next Visit Focus/Plan Next Note Type Treatment Note Next Visit Plan Assess response to resisted ther ex and balance uneven surface last tx. POC: Balance challenges, head turns, uneven surfaces
--- NOTE | 2023-10-28 10:32 | PT.OTN ---
Current Diagnoses Unsteadiness on feet (10/28/23) Other abnormalities of gait and mobility (10/28/23) Dizziness and giddiness (10/28/23) Physical Therapy Treatment Note PT-OP-A Visit Information Start: 09/22/23 17:39 Freq: Status: Active Protocol: Document 10/28/23 09:50 DCW (Rec: 10/28/23 10:32 DCW [id number]) Out-Patient Physical Therapy Visit Information Visit Information Visit Type Treatment Note Visit Start Time 09:50 Visit Stop Time 10:30 Visit Number 8 Number of VISUAL AND STOCK ASSOCIATE Visits 0 PT-OP-B Current Condition Start: 09/22/23 17:39 Freq: Status: Active Protocol: Document 09/22/23 15:15 DCW (Rec: 09/22/23 17:46 DCW [id number]) Current Condition History of Current Condition Onset Date Long-standing history Current Complaints Declining balance, increased fear of falling, left foot slap History of Current Condition Pt is an 83 year old female presenting to skilled therapy with a long-standing history of worsening balance and increasing fear of falling, complicated by 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 Admits she typically wears an AFO for the foot slap, and when out walking in [place] , uses trekking poles, but otherwise does not use any assistive devices regularly. Not comfortable ascending or descending stairs without railing, and going on longer walks just feels like an effort. PT-OP-C Subjective Start: 09/22/23 17:39 Freq: Status: Active Protocol: Document 10/28/23 09:50 DCW (Rec: 10/28/23 10:32 DCW [id number]) OP-PT Subjective Patient Comments Patient Comments Pt notes she is feeling pretty good today. PT-OP-D Balance Start: 09/22/23 17:39 Freq: Status: Active Protocol: Document 09/22/23 15:15 DCW (Rec: 09/22/23 17:50 DCW [id number]) Balance Tests Armenta Balance Test Armenta Balance Test Score 52/56 Armenta Balance Assessment Evaluation Sitting to Standing Ability Independent w/out Hands Unsupported Stance Safely- 2 minutes Sitting Unsupported, Feet on Floor Safely- 2 minutes Standing to Sitting Ability Safely, Minimal Hand Use Transfer Ability Safely, Minimal Hand Use Unsupported Stance- Eyes Closed Safely, 10 seconds Unsupported Stance- Eyes Open Independent, 1 minute Reaching Forward Standing Safely, 5 inches Pick- Up Object From Floor Independent/Safe Look Behind Shoulder - Standing Shifts Weight Well Turning 360 Degrees Turns Bilateral, < 4 secs Unsupported Stance, Alternating Feet on (I)- 8 Steps in 20 secs Stair Unsupported Tandem Stance Achieves Tandem Unilateral Leg Stance Lifts Leg/Unable to Hold Total Score Armenta Total Score (out of 56 points) 52 PT-OP-E Functional Tests Start: 09/22/23 17:39 Freq: Status: Active Protocol: Document 09/22/23 15:15 DCW (Rec: 09/22/23 17:50 DCW [id number]) Functional Tests Dynamic Gait Index (DGI) Score 18/24 DGI Impairment Rating 20 to <40% Impaired (Score 15- 19) Functional Gait Assessment Score 19/30 Functional Gait Assessment Impairment 20 to <40% Impaired (Score 19- Rating 24) PT-OP-M Strength Start: 09/22/23 17:39 Freq: Status: Active Protocol: Document 09/22/23 15:15 DCW (Rec: 09/22/23 17:50 DCW [id number]) Hip Strength Hip Manual Muscle Testing Right Flexion (L2) 5 Normal Extension (S1) 5 Normal Abduction 5 Normal Adduction 5 Normal External Rotation 4 Good Internal Rotation 5 Normal Left Flexion (L2) 5 Normal Extension (S1) 5 Normal Abduction 5 Normal Adduction 5 Normal External Rotation 5 Normal Internal Rotation 4+ Good+ Knee Strength Knee Manual Muscle Testing Right Flexion (S2) 5 Normal Extension (L3) 5 Normal Left Flexion (S2) 5 Normal Extension (L3) 5 Normal Ankle/Foot Strength Ankle and Foot Manual Muscle Testing Right Dorsiflexion (L4) 5 Normal Left Dorsiflexion (L4) 4 Good PT-OP-Q Treatments Start: 09/22/23 17:39 Freq: Status: Active Protocol: Document 10/28/23 09:50 DCW (Rec: 10/28/23 10:32 DCW [id number]) Gym Equipment Shuttle Balance Red Details WBOS, Staggered fwd, Lateral Therapeutic Exercises Standing Exercises Hip Extension Standing Exercise Name Hip Extension Side bilateral Resistance Green step ups Standing Exercise Name Step-ups Resistance 5# Equipment Used 6 step marching Standing Exercise Name Toe-taps Side bilateral Resistance 5# Equipment Used 6 step Other Exercises Resisted Ambulation Other Exercise Name Resisted side-stepping Resistance Green Neuro Re-Education Treatment Balance Activities SLS Details SLS Equipment // bars Dynamic Ambulation Details Hallway Ambulation Equipment near rail hallway Comments Horizontal/Vertical head turns (90 bpm) Retro Ambulation Tandem Ambulation Hurdles Details Uneven blue foam PT-OP-T Assessment and Plan Start: 09/22/23 17:39 Freq: Status: Active Protocol: Document 10/28/23 09:50 DCW (Rec: 10/28/23 10:32 DCW [id number]) Physical Therapy Assessment Impairments Impairments Activity Tolerance,Balance, Functional Activities, Functional Mobility,Gait,Soft Tissue Mobility,Strength Goals Two Impairment Pt scores a 19/30 on FGA, indicating increased falls risk Hvac Technician Residential Goal (LTG) Pt to increase FGA score by at least 3 points to 22/30 in order to demonstrate decreasing falls risk and improve pt's confidence in walking at [place] LTG Duration 11/23/23 One Impairment Pt does not have an appropriate home exercise program Short Term Goal (STG) Pt to be independent and compliant with an appropriate HEP STG Duration 10/23/23 Assessment Summary Assessment Good response to treatment today, showing good improvement with dynamic balance during challenges with head turns. Showing some improvement with LE strength. Physical Therapy Plan Frequency and Duration Frequency of Treatment 2x/Week Plan of Care Start Date 09/22/23 Plan of Care End Date 11/23/23 Therapeutic Interventions Therapeutic Interventions Balance Training,Coordination Training,Gait Training,Home Exercise Program,Manual Therapy,Neuromuscular Re- education,Patient/Caregiver Education,Self-Care/Home Management,Therapeutic Activities,Therapeutic Exercises,Vestibular Rehabilitation Next Visit Focus/Plan Next Note Type Treatment Note Next Visit Plan Assess response to resisted ther ex and balance uneven surface last tx. POC: Balance challenges, head turns, uneven surfaces
--- NOTE | 2023-11-02 13:45 | PT.OTN ---
Current Diagnoses Unsteadiness on feet (11/02/23) Other abnormalities of gait and mobility (11/02/23) Dizziness and giddiness (11/02/23) Physical Therapy Treatment Note PT-OP-A Visit Information Start: 09/22/23 17:39 Freq: Status: Active Protocol: Document 11/02/23 13:09 SP (Rec: 11/02/23 13:46 SP [id number]) Out-Patient Physical Therapy Visit Information Visit Information Visit Type Treatment Note Visit Start Time 13:09 Visit Stop Time 13:45 Visit Number 9 Number of COBOL PROGRAMMER Visits 1 PT-OP-B Current Condition Start: 09/22/23 17:39 Freq: Status: Active Protocol: Document 09/22/23 15:15 DCW (Rec: 09/22/23 17:46 DCW [id number]) Current Condition History of Current Condition Onset Date Long-standing history Current Complaints Declining balance, increased fear of falling, left foot slap History of Current Condition Pt is an 83 year old female presenting to skilled therapy with a long-standing history of worsening balance and increasing fear of falling, complicated by 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 Admits she typically wears an AFO for the foot slap, and when out walking in [place] , uses trekking poles, but otherwise does not use any assistive devices regularly. Not comfortable ascending or descending stairs without railing, and going on longer walks just feels like an effort. PT-OP-C Subjective Start: 09/22/23 17:39 Freq: Status: Active Protocol: Document 11/02/23 13:09 SP (Rec: 11/02/23 13:46 SP [id number]) OP-PT Subjective Patient Comments Patient Comments Pt reports doing ok, tired after last tx but felt good. PT-OP-D Balance Start: 09/22/23 17:39 Freq: Status: Active Protocol: Document 09/22/23 15:15 DCW (Rec: 09/22/23 17:50 DCW [id number]) Balance Tests Armenta Balance Test Armenta Balance Test Score 52/56 Armenta Balance Assessment Evaluation Sitting to Standing Ability Independent w/out Hands Unsupported Stance Safely- 2 minutes Sitting Unsupported, Feet on Floor Safely- 2 minutes Standing to Sitting Ability Safely, Minimal Hand Use Transfer Ability Safely, Minimal Hand Use Unsupported Stance- Eyes Closed Safely, 10 seconds Unsupported Stance- Eyes Open Independent, 1 minute Reaching Forward Standing Safely, 5 inches Pick- Up Object From Floor Independent/Safe Look Behind Shoulder - Standing Shifts Weight Well Turning 360 Degrees Turns Bilateral, < 4 secs Unsupported Stance, Alternating Feet on (I)- 8 Steps in 20 secs Stair Unsupported Tandem Stance Achieves Tandem Unilateral Leg Stance Lifts Leg/Unable to Hold Total Score Armenta Total Score (out of 56 points) 52 PT-OP-E Functional Tests Start: 09/22/23 17:39 Freq: Status: Active Protocol: Document 09/22/23 15:15 DCW (Rec: 09/22/23 17:50 DCW [id number]) Functional Tests Dynamic Gait Index (DGI) Score 18/24 DGI Impairment Rating 20 to <40% Impaired (Score 15- 19) Functional Gait Assessment Score 19/30 Functional Gait Assessment Impairment 20 to <40% Impaired (Score 19- Rating 24) PT-OP-M Strength Start: 09/22/23 17:39 Freq: Status: Active Protocol: Document 09/22/23 15:15 DCW (Rec: 09/22/23 17:50 DCW [id number]) Hip Strength Hip Manual Muscle Testing Right Flexion (L2) 5 Normal Extension (S1) 5 Normal Abduction 5 Normal Adduction 5 Normal External Rotation 4 Good Internal Rotation 5 Normal Left Flexion (L2) 5 Normal Extension (S1) 5 Normal Abduction 5 Normal Adduction 5 Normal External Rotation 5 Normal Internal Rotation 4+ Good+ Knee Strength Knee Manual Muscle Testing Right Flexion (S2) 5 Normal Extension (L3) 5 Normal Left Flexion (S2) 5 Normal Extension (L3) 5 Normal Ankle/Foot Strength Ankle and Foot Manual Muscle Testing Right Dorsiflexion (L4) 5 Normal Left Dorsiflexion (L4) 4 Good PT-OP-Q Treatments Start: 09/22/23 17:39 Freq: Status: Active Protocol: Document 11/02/23 13:09 SP (Rec: 11/02/23 13:46 SP [id number]) Gym Equipment Shuttle Recovery unilateral squat Details occ cues knee alignment Resistance 37# teal green Reps/Time 15 bilateral squat Details occ cues L foot & knee alignment Resistance 62# dark navy Reps/Time 21 Shuttle Balance Red Details WBOS, Staggered, Lateral Comments wt shift stationary HTs each position EC- WBOS 3 sec Therapeutic Exercises Standing Exercises Hamstring Curls Standing Exercise Name HS Curls Side bilateral Resistance TB #1 under opp foot Reps/Minutes L 8, 10 reps: RLE 10 reps x2 Comments cued knees // each other, curl tolerant range- good effort HS tirirng step ups Standing Exercise Name Step-ups Resistance 5# leg wt Equipment Used 8 step, near rail PRN contact Reps/Minutes 8 reps each LE Comments cued slow eccentric step back down, slower foot clear asc, static rest PRN side stepping Standing Exercise Name trialed in PT Resistance L1 at forefoot (after HS curls , less resistance today) Equipment Used rail PRN Reps/Minutes 15 ft 2 laps Comments cued trail LLE clearance, eccentric control Neuro Re-Education Treatment Balance Activities Hurdles Equipment Uneven blue foam, 5 hurdles Reps/Duration near but not need rail Comments cued taller/slow pacing soft steps, no circumduction RLE. improved stability PT-OP-T Assessment and Plan Start: 09/22/23 17:39 Freq: Status: Active Protocol: Document 11/02/23 13:09 SP (Rec: 11/02/23 13:46 SP [id number]) Physical Therapy Assessment Goals Two Impairment Pt scores a 19/30 on FGA, indicating increased falls risk Skin Diving Teacher Goal (LTG) Pt to increase FGA score by at least 3 points to 22/30 in order to demonstrate decreasing falls risk and improve pt's confidence in walking at [place] LTG Duration 11/23/23 One Impairment Pt does not have an appropriate home exercise program Short Term Goal (STG) Pt to be independent and compliant with an appropriate HEP STG Duration 10/23/23 Assessment Summary Assessment Pt demonstrates good effort during ther ex today, tolerated increase in resistance and more elevated step ups, cues for slower pacing and eccentric control. She improved not need contant rail duirng william/uneven stepping, cues for slower pacing to allow soft stepping and increased stability. She was able to stabilize better on shuttle recovery with abililty to complete head turns without UE support and brief 3 sec EO WBOS. Physical Therapy Plan Frequency and Duration Frequency of Treatment 2x/Week Plan of Care Start Date 09/22/23 Plan of Care End Date 11/23/23 Therapeutic Interventions Therapeutic Interventions Balance Training,Coordination Training,Gait Training,Home Exercise Program,Manual Therapy,Neuromuscular Re- education,Patient/Caregiver Education,Self-Care/Home Management,Therapeutic Activities,Therapeutic Exercises,Vestibular Rehabilitation Next Visit Focus/Plan Next Note Type Treatment Note Next Visit Plan Assess response to resisted ther ex and balance uneven surface last tx. POC: Balance challenges, head turns, uneven surfaces
--- NOTE | 2023-11-08 10:24 | PT.OPDS ---
Current Diagnoses Unsteadiness on feet (11/08/23) Other abnormalities of gait and mobility (11/08/23) Dizziness and giddiness (11/08/23) Visit Care Team Role Provider Type Karthik Vasquez MD Family Provider Physician Primary Care Provider Specialty: Family Practice Address: [address] [place] [address], [facility] Email: [email or web address] Moise Mclaughlin MD Attending Provider Physician Referring Provider Specialty: Ear, Nose, Throat Address: [address] [place] [address], [facility] Email: [email or web address] Visit Number Visit Number 10 Discharge Summary PT-OP-B Current Condition Start: 09/22/23 17:39 Freq: Status: Active Protocol: Document 09/22/23 15:15 DCW (Rec: 09/22/23 17:46 DCW [id number]) Current Condition History of Current Condition Onset Date Long-standing history Current Complaints Declining balance, increased fear of falling, left foot slap History of Current Condition Pt is an 83 year old female presenting to skilled therapy with a long-standing history of worsening balance and increasing fear of falling, complicated by 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 Admits she typically wears an AFO for the foot slap, and when out walking in [place] , uses trekking poles, but otherwise does not use any assistive devices regularly. Not comfortable ascending or descending stairs without railing, and going on longer walks just feels like an effort. PT-OP-C Subjective Start: 09/22/23 17:39 Freq: Status: Active Protocol: Document 11/08/23 09:50 DCW (Rec: 11/08/23 10:24 DCW [id number]) OP-PT Subjective Patient Comments Patient Comments Pt happy with current level of function PT-OP-D Balance Start: 09/22/23 17:39 Freq: Status: Active Protocol: Document 09/22/23 15:15 DCW (Rec: 09/22/23 17:50 DCW [id number]) Balance Tests Armenta Balance Test Armenta Balance Test Score 52/56 Armenta Balance Assessment Evaluation Sitting to Standing Ability Independent w/out Hands Unsupported Stance Safely- 2 minutes Sitting Unsupported, Feet on Floor Safely- 2 minutes Standing to Sitting Ability Safely, Minimal Hand Use Transfer Ability Safely, Minimal Hand Use Unsupported Stance- Eyes Closed Safely, 10 seconds Unsupported Stance- Eyes Open Independent, 1 minute Reaching Forward Standing Safely, 5 inches Pick- Up Object From Floor Independent/Safe Look Behind Shoulder - Standing Shifts Weight Well Turning 360 Degrees Turns Bilateral, < 4 secs Unsupported Stance, Alternating Feet on (I)- 8 Steps in 20 secs Stair Unsupported Tandem Stance Achieves Tandem Unilateral Leg Stance Lifts Leg/Unable to Hold Total Score Armenta Total Score (out of 56 points) 52 PT-OP-E Functional Tests Start: 09/22/23 17:39 Freq: Status: Active Protocol: Document 11/08/23 09:50 DCW (Rec: 11/08/23 10:06 [facility] [id number]) Functional Tests Dynamic Gait Index (DGI) Score 22/24 DGI Impairment Rating 1 to <20% Impaired (Score 20- 23) Functional Gait Assessment Score 22/30 Functional Gait Assessment Impairment 20 to <40% Impaired (Score 19- Rating 24) PT-OP-M Strength Start: 09/22/23 17:39 Freq: Status: Active Protocol: Document 11/08/23 09:50 DCW (Rec: 11/08/23 10:06 [facility] [id number]) Hip Strength Hip Manual Muscle Testing Right Flexion (L2) 5 Normal Extension (S1) 5 Normal Abduction 5 Normal Adduction 5 Normal External Rotation 4+ Good+ Internal Rotation 5 Normal Left Flexion (L2) 5 Normal Extension (S1) 5 Normal Abduction 5 Normal Adduction 5 Normal External Rotation 5 Normal Internal Rotation 5 Normal PT-OP-T Assessment and Plan Start: 09/22/23 17:39 Freq: Status: Active Protocol: Document 11/08/23 09:50 DCW (Rec: 11/08/23 10:24 [facility] [id number]) Physical Therapy Assessment Impairments Impairments Activity Tolerance,Balance, Functional Activities, Functional Mobility,Gait,Soft Tissue Mobility,Strength Goals Two Impairment Pt scores a 19/30 on FGA, indicating increased falls risk Patient Assessment Coordinator Goal (LTG) Pt to increase FGA score by at least 3 points to 22/30 in order to demonstrate decreasing falls risk and improve pt's confidence in walking at [place] LTG Duration Met One Impairment Pt does not have an appropriate home exercise program Short Term Goal (STG) Pt to be independent and compliant with an appropriate HEP STG Duration Met Progress Towards Goals Progress Towards Goals Goals Met Assessment Summary Assessment Pt has met all goals, feels comfortable with independent HEP. Pt doing very well, no longer testing as an increased falls risk. Pt appropriate for discharge at this time. Physical Therapy Plan Frequency and Duration Frequency of Treatment 2x/Week Plan of Care Start Date 09/22/23 Plan of Care End Date 11/23/23 Therapeutic Interventions Therapeutic Interventions Balance Training,Coordination Training,Gait Training,Home Exercise Program,Manual Therapy,Neuromuscular Re- education,Patient/Caregiver Education,Self-Care/Home Management,Therapeutic Activities,Therapeutic Exercises,Vestibular Rehabilitation Discharge Physical Therapy Discharge Reasons Goals Met Next Visit Focus/Plan Next Note Type Discharge Summary
== END 2023-11-16 09:56 | disposition home or self-care (01) ==
LOC: PHYS 09:45
PROVIDERS: Family Provider Family Medicine; PCP Family Medicine; Referring Provider Otolaryngology; Visit Provider Otolaryngology
DX: R26.89 Other abnormalities of gait and mobility (principal); R42 Dizziness and giddiness; R26.81 Unsteadiness on feet
CPT/HCPCS: 97110; 97112; 97161; 97535

== ENCOUNTER → 2024-07-25 11:14 | Outpatient (CLI) | payer MEDICARE, SELFPAY ==
[2019-05-14 17:02] VITALS: BMI 20.9
--- NOTE | 2024-07-25 11:15 | DI.MG.S_ITS ---
BILATERAL DIGITAL SCREENING MAMMOGRAM 3D/2D WITH CAD POST LUMPECTOMY: 07/25/2024 CLINICAL: Routine screening. Personal history of right breast cancer. Comparison is made to exams dated: 11/17/2022 mammogram, 11/04/2021 mammogram, and 10/27/2020 mammogram - [facility]. The breasts are heterogeneously dense, which may obscure small masses (category c / 51-75% glandular tissue). Current study was also evaluated with a Computer Aided Detection (CAD) system. There is a possible developing round high density asymmetry with a spiculated margin in the left breast middle depth central to the nipple seen on the craniocaudal view only. No other significant masses, calcifications, or other findings are seen in either breast. IMPRESSION: INCOMPLETE: NEED ADDITIONAL IMAGING EVALUATION The possible developing round high density asymmetry in the left breast is indeterminate. Additional views with possible ultrasound are recommended. This exam was interpreted at Station ID: [id number]. NOTE: For mammograms, a report in lay terms will be sent to the patient. Approximately 15% of breast malignancies will not be visualized mammographically. In the management of a palpable breast mass, a negative mammogram must not discourage biopsy of a clinically suspicious lesion. Electronically Signed By: Nelly nevarez/brendon:07/25/2024 19:16:44 letter sent: Additional Imaging Needed ACR BI-RADS Category 0: Incomplete: Need Additional Imaging Evaluation
== END ==
PROVIDERS: Family Provider Family Medicine; PCP Family Medicine; Referring Provider Family Medicine; Visit Provider Family Medicine
DX: Z12.31 Encounter for screening mammogram for malignant neoplasm of breast (principal); Z85.3 Personal history of malignant neoplasm of breast; R92.333 Mammographic heterogeneous density, bilateral breasts
CPT/HCPCS: 77063; 77067

== ENCOUNTER → 2024-08-01 08:21 | Outpatient (CLI) | payer MEDICARE, SELFPAY ==
[2019-05-14 17:02] VITALS: BMI 20.9
[2024-08-01 09:35] LABS: Alanine Aminotransferase 24 IU/L (<35); Albumin 4.3 g/dL (3.5-5.0); Albumin Globulin Ratio 1.7 (1.0-2.8); Alkaline Phosphatase 61 U/L (38-126); Aspartate Aminotransferase 29 IU/L (14-36); BUN Creatinine Ratio 20.8 (6-22); Bilirubin Total 0.5 mg/dL (0.2-1.3); Blood Urea Nitrogen 16 mg/dL (7-17); Calcium 9.5 mg/dL (8.4-10.2); Carbon Dioxide 27 mmol/L (22-32); Chloride 103 mmol/L (98-107); Estimated Glomerular Filt Rate > 60 mL/min (>60); Globulin 2.6 g/dL (1.7-4.1); Glucose 111 mg/dL (80-110); HEMOLYSIS < 15 (0-50); Potassium 4.4 mmol/L (3.4-5.1); Sodium 137 mmol/L (137-145); Total Protein 6.9 g/dL (6.3-8.2)
[2024-08-03 14:09] LABS: Cholesterol, Total 145 mg/dL (100-199); HDL-Cholesterol 67 mg/dL (>39); HDL-Particle (Total) 37.2 umol/L (>=30.5); LDL Particle 628 nmol/L (<1000); LDL Size 20.5 nm (>20.5); LDL-Cholsterol 66 mg/dL (0-99); LP-IR Score 31 (<=45); Small LDL- Particle 277 nmol/L (<=527); Triglycerides 57 mg/dL (0-149)
== END ==
PROVIDERS: Family Provider Family Medicine; PCP Family Medicine; Referring Provider Specialist; Visit Provider Specialist
DX: I10 Essential (primary) hypertension (principal); E78.5 Hyperlipidemia, unspecified; R00.2 Palpitations
CPT/HCPCS: 36415; 80053; 80061; 83704; 83735

== ENCOUNTER → 2024-08-20 09:31 | Outpatient (CLI) | payer MEDICARE, SELFPAY ==
[2019-05-14 17:02] VITALS: BMI 20.9
--- NOTE | 2024-08-20 09:33 | DI.MG.S_ITS ---
UNILATERAL LEFT DIGITAL DIAGNOSTIC MAMMOGRAM 3D/2D WITH ADDITIONAL VIEWS: 08/20/2024 CLINICAL: Additional evaluation requested from prior study. Comparison is made to exams dated: 07/25/2024 mammogram, 11/17/2022 mammogram, and 11/04/2021 mammogram - [facility]. The breasts are heterogeneously dense, which may obscure small masses (category c / 51-75% glandular tissue). The previously described possible developing round asymmetry in the left breast middle depth central to the nipple seen on the craniocaudal view only is not definitively confirmed in additional views and appears less prominent. No other significant masses or calcifications are seen in the breast. IMPRESSION: INCOMPLETE: NEED ADDITIONAL IMAGING EVALUATION The possible developing round asymmetry in the left breast has a differential diagnosis of a cyst, fibroglandular tissue, or a solid mass and is indeterminate. An ultrasound is recommended for further evaluation and is scheduled to immediately follow this examination. This exam was interpreted at Station ID: [id number]. NOTE: For mammograms, a report in lay terms will be sent to the patient. Approximately 15% of breast malignancies will not be visualized mammographically. In the management of a palpable breast mass, a negative mammogram must not discourage biopsy of a clinically suspicious lesion. Electronically Signed By: Stas Velazco M.D. aty/:08/20/2024 10:30:02 letter sent: Additional Imaging Needed ACR BI-RADS Category 0: Incomplete: Need Additional Imaging Evaluation
--- NOTE | 2024-08-20 09:33 | DI.US.S_ITS ---
LIMITED ULTRASOUND OF LEFT BREAST AND AXILLA: 08/20/2024 CLINICAL: Patient returns today to evaluate an asymmetry in the left breast. Comparison is made to exams dated: 08/20/2024 mammogram, 07/25/2024 mammogram, 11/17/2022 mammogram, 11/04/2021 mammogram, 10/27/2020 mammogram, and 10/26/2019 mammogram - [facility]. Real-time ultrasound of the left breast retroareolar and axilla regions was performed. Celaya scale images of the real-time examination were reviewed. No significant abnormalities were seen sonographically in the left breast or the left axilla. IMPRESSION: NEGATIVE There is no sonographic evidence of malignancy. There is no abnormality seen in the left breast to correspond with the mammography finding which likely represents normal fibroglandular tissue. A 1 year screening mammogram is recommended. Findings and recommendations were conveyed to the patient during today's evaluation. This exam was interpreted at Station ID: [id number]. Electronically Signed By: Stas Velazco M.D. at/:08/20/2024 11:15:28 letter sent: Normal Exam ACR BI-RADS Category 1: Negative
== END ==
LOC: MAMMO 09:32
PROVIDERS: Family Provider Family Medicine; PCP Family Medicine; Referring Provider Family Medicine; Visit Provider Family Medicine
DX: R92.8 Other abnormal and inconclusive findings on diagnostic imaging of breast (principal); R92.333 Mammographic heterogeneous density, bilateral breasts
CPT/HCPCS: 76642; 77065; G0279

== ENCOUNTER → 2024-12-13 15:06 | Outpatient (CLI) | payer MEDICARE, SELFPAY ==
[2019-05-14 17:02] VITALS: BMI 20.9
--- NOTE | 2024-12-13 15:08 | DI.MRI.S_ITS ---
PROCEDURE: MR ANKLE RT WO CON INDICATIONS: RIGHT ANKLE PAIN/SWELLING/RULE OUT STRESS REACTION TECHNIQUE: Noncontrast sagittal T1 spin echo and T2 fast spin echo with fat saturation, axial proton density fast spin echo and T2 fast spin echo with fat saturation, coronal T1 spin echo and T2 fast spin echo with fat saturation through the ankle/hindfoot. COMPARISON: [facility], CR, XR ANKLE 1 OR 2 VIEWS WEIGHT BEARING RIGHT, 12/10/2024, 10:20. FINDINGS: Image quality: Excellent Tendons: The posterior tibialis flexor digitorum longus and the flexor longus are unremarkable. The extensor tendons are unremarkable. Mild tenosynovitis of the peroneal tendons with longitudinal split tear of the peroneal longus and the peroneal brevis, immediately below the lateral malleolus. There is mild cystic changes and moderate marrow edema at the peroneal tubercle of the calcaneus. The distal Achilles tendon is unremarkable. Ligaments: The anterior and the posterior tibiofibular ligaments are intact. Thickening of the anterior talofibular ligament, with low-grade tear at the calcaneal insertion. The posterior talofibular ligament is intact. Mild sprain of the calcaneofibular ligament. The deep portion deltoid ligament is intact. Sinus tarsi: Obscured by metallic artifact. Plantar fascia: Unremarkable Muscles: Mild muscle edema of the flexor digitorum brevis muscle, with moderate fatty atrophy, nonspecific. Severe fatty atrophy of the abductor digiti minimi, without muscle edema, which may be secondary to denervation. Bones: Screw fixation of the talus head, creating artifacts and limits evaluation. Please see above. Mild degenerative changes of the midfoot, most pronounced at the 2nd tarsometatarsal joint. Trace tibiotalar effusion. Marked circumferential subcutaneous edema in the distal leg, extending to the ankle and the dorsal midfoot. IMPRESSION: 1. Mild tenosynovitis and longitudinal split tear of the peroneal longus and brevis. Subjacent mild reactive cystic changes and moderate marrow edema at the peroneal tubercle of the calcaneus. 2. Severe fatty atrophy of the abductor digiti minimi, likely secondary to denervation. 3. Screw fixation of the talus head, creating artifacts and limits evaluation. 4. Mild degenerative changes of the midfoot. 5. Circumferential subcutaneous edema as described above. Dictated by: Jessica Peterson M.D. on 12/13/2024 at 16:37 Approved by: Jessica Peterson M.D. on 12/13/2024 at 16:48
== END ==
PROVIDERS: Family Provider Family Medicine; PCP Family Medicine; Referring Provider Orthopaedic Surgery Foot and Ankle Surgery; Visit Provider Orthopaedic Surgery Foot and Ankle Surgery
DX: S96.811A Strain of other specified muscles and tendons at ankle and foot level, right foot, initial encounter (principal); M65.971 Unspecified synovitis and tenosynovitis, right ankle and foot; M25.571 Pain in right ankle and joints of right foot
CPT/HCPCS: 73721

== ENCOUNTER → 2024-12-28 11:20 | Outpatient (CLI) | payer MEDICARE, SELFPAY ==
[2019-05-14 17:02] VITALS: BMI 20.9
--- NOTE | 2024-12-28 | DI.RAD.S_ITS ---
PROCEDURE: XR HAND LT MIN 3V INDICATIONS: Bilateral hand pain TECHNIQUE: 3 views of the hand(s) acquired. COMPARISON: [facility], CR, XR HAND LT 2V, 04/13/2023, 10:41. [facility], CR, XR HAND RT 2V, 04/13/2023, 10:41. FINDINGS: Bones: No fractures or dislocations. Carpal bones are normally aligned. No suspicious bony lesions. There is moderately severe degenerative osteoarthritic change involving the distal interphalangeal joints over the 5 digits, as was also identified in March of 2023. Erosive arthritis is not found. Moderately severe degeneration also is seen at the base of the 1st metacarpal bone as it articulates against the distal trapezium. Soft tissues: No suspicious soft tissue calcifications. 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 No trauma. Dictated by: Myron Araiza M.D. on 12/28/2024 at 13:23 Approved by: Myron Araiza M.D. on 12/28/2024 at 13:25
--- NOTE | 2024-12-28 11:23 | DI.RAD.S_ITS ---
PROCEDURE: XR CHEST 2V INDICATIONS: CHEST PAIN TECHNIQUE: 2 views of the chest were acquired. COMPARISON: [facility], CR, XR CHEST 1V, 10/12/2023, 10:19. [facility], CR, XR CHEST 2V, 03/02/2019, 12:19. FINDINGS: Surgical changes and devices: None. Lungs and pleura: Lungs are clear except for mild chronic interstitial prominence.. No pleural effusions or pneumothorax. Mediastinum: Mediastinal contours are normal. Heart size is normal. Bones and chest wall: No suspicious bony abnormalities. Soft tissues appear unremarkable. IMPRESSION: No acute cardiopulmonary abnormality is seen. Mild chronic interstitial prominence, likely age related. Dictated by: Myron Araiza M.D. on 12/28/2024 at 13:25 Approved by: Myron Araiza M.D. on 12/28/2024 at 13:26
--- NOTE | 2024-12-28 11:24 | DI.RAD.S_ITS ---
PROCEDURE: XR HAND RT MIN 3V INDICATIONS: HAND PAIN TECHNIQUE: 3 views of the hand(s) acquired. COMPARISON: [facility], CR, XR HAND RT 2V, 04/13/2023, 10:41. FINDINGS: Bones: No fractures or dislocations. Moderately severe degenerative osteoarthritic changes found over the right hand as was the case also in March of 2023. There is moderately severe osteoarthritic change also at the base of the 1st metacarpal. These abnormalities are very similar to the findings on the left hand and wrist, also reviewed today and in March of 2023. Carpal bones are normally aligned. No suspicious bony lesions. Soft tissues: No suspicious soft tissue calcifications. IMPRESSION: Stable degenerative osteoarthritis that is moderately severe over the right hand and base of the 1st metacarpal without evidence of intervening trauma or development of erosive arthritis. Little if any change identified over the prior 2 years. Dictated by: Myron Araiza M.D. on 12/28/2024 at 13:26 Approved by: Myron Araiza M.D. on 12/28/2024 at 13:28
== END ==
PROVIDERS: Family Provider Family Medicine; PCP Family Medicine; Referring Provider Family Medicine; Visit Provider Family Medicine
DX: M19.041 Primary osteoarthritis, right hand (principal); M19.042 Primary osteoarthritis, left hand; R06.09 Other forms of dyspnea
CPT/HCPCS: 71046; 73130; 77081

== ENCOUNTER → 2025-02-07 08:45 | Outpatient (CLI) | payer MEDICARE, SELFPAY ==
[2019-05-14 17:02] VITALS: BMI 20.9
== END ==
LOC: PHYS 08:47
PROVIDERS: Family Provider Family Medicine; PCP Family Medicine; Referring Provider Family Medicine; Visit Provider Family Medicine
DX: R20.0 Anesthesia of skin (principal); R20.2 Paresthesia of skin
CPT/HCPCS: 95886; 95910

== ENCOUNTER → 2025-05-06 08:43 | Outpatient (CLI) | payer MEDICARE, SELFPAY ==
[2019-05-14 17:02] VITALS: BMI 20.9
[2025-05-06 10:15] LABS: Alanine Aminotransferase 26 IU/L (<35); Albumin 4.5 g/dL (3.5-5.0); Albumin Globulin Ratio 1.6 (1.0-2.8); Alkaline Phosphatase 100 U/L (38-126); Blood Urea Nitrogen 19 mg/dL (7-17); Calcium 9.5 mg/dL (8.4-10.2); Carbon Dioxide 26 mmol/L (22-32); Chloride 103 mmol/L (98-107); Cholesterol 150 mg/dL (140-199); Estimated Glomerular Filt Rate > 60 mL/min (>60); Globulin 2.8 g/dL (1.7-4.1); Glucose 115 mg/dL (70-99); HDL Cholesterol 62 mg/dL (40-60); HEMOLYSIS < 15 (0-50); Magnesium 2.2 mg/dL (1.6-2.3); Potassium 4.4 mmol/L (3.4-5.1); Sodium 138 mmol/L (137-145); Total Protein 7.3 g/dL (6.3-8.2); Triglycerides 75 mg/dL (35-150)
== END ==
PROVIDERS: Family Provider Family Medicine; PCP Family Medicine; Referring Provider Family Medicine; Visit Provider Specialist
DX: I10 Essential (primary) hypertension (principal); E78.5 Hyperlipidemia, unspecified; R00.2 Palpitations
CPT/HCPCS: 36415; 80053; 80061; 83735

== ENCOUNTER → 2025-09-10 16:09 | Outpatient (CLI) | payer MEDICARE, SELFPAY ==
[2019-05-14 17:02] VITALS: BMI 20.9
--- NOTE | 2025-09-10 16:10 | DI.MG.S_ITS ---
MM screening mammo BI: 09/10/2025. BI-RADS: 2 CLINICAL: 85-year old female for bilateral screening mammogram. No Tyrer-Cuzick risk score calculation due to the patient's personal history of breast cancer. Patient reports a history of right breast carcinoma diagnosed at age 61. Status-post right lumpectomy with radiation therapy. No first-degree family history of breast cancer. The patient had a prior right breast biopsy. PRIOR EXAMS 08/20/2024, 07/25/2024, 07/18/2023, 11/17/2022, MAMMOGRAPHY TECHNIQUE: 2D and 3D (tomosynthesis) digital mammographic views obtained, with additional images as needed for full coverage. Current study was also evaluated with a Computer Aided Detection (CAD) system. DENSITY C. The breasts are heterogeneously dense, which may obscure small masses. MAMMOGRAPHY FINDINGS Right: Benign-appearing post-surgical changes noted on the right. Typically-benign vascular calcifications also noted. Left: Typically-benign vascular calcifications noted. IMPRESSION: * No evidence of malignancy with benign findings. RECOMMENDATIONS Bilateral * Annual screening mammography. OVERALL ASSESSMENT CATEGORY BI-RADS-2: Benign. The [employer] recommends annual screening mammography beginning at age 40 for women with average risk of breast cancer. ELECTRONICALLY SIGNED: Jose Bledsoe M.D. on 09/11/2025 at 01:11:44 PM PT Interpreting Station ID: [id number]
== END ==
PROVIDERS: Family Provider Family Medicine; PCP Family Medicine; Referring Provider Family Medicine; Visit Provider Family Medicine
DX: Z12.31 Encounter for screening mammogram for malignant neoplasm of breast (principal); Z85.3 Personal history of malignant neoplasm of breast; R92.333 Mammographic heterogeneous density, bilateral breasts
CPT/HCPCS: 77063; 77067